=== PATIENT | female | born 1955 | race Caucasian/White ===

== ENCOUNTER 2020-05-24 13:58 | Outpatient (CLI) | payer MEDICARE, BC, SELFPAY ==
--- NOTE | ~2020-05-24 | MM_ITS ---
EXAMINATION: MM screening [facility] BI w rudolph HISTORY: Screening mammogram TECHNIQUE: Craniocaudal and mediolateral oblique 3-D tomosynthesis images were obtained and synthetic 2-D images were generated. CAD analysis was submitted and interpreted. COMPARISON: 06/06/2015, 06/02/2014, 11/30/2007 BREAST PARENCHYMAL COMPOSITION: There are scattered areas of fibroglandular density. FINDINGS: There is no evidence of suspicious mass, calcification, or architectural distortion to sugg est malignancy in either breast. There has been no suspicious interval change. IMPRESSION: 1. No mammographic evidence of malignancy. 2. Recommend routine screening mammography in one year. BI-RADS Category 1: Negative Reviewed, dictated and finalized at location A.
== END 2020-05-24 13:59 | disposition home or self-care (01) ==
LOC: ANHIMG 14:01
PROVIDERS: PCP Family Medicine Adolescent Medicine; Visit Provider Physician Assistant
DX: Z12.31 Encounter for screening mammogram for malignant neoplasm of breast (principal)
CPT/HCPCS: 77063; 77067

== ENCOUNTER 2021-06-19 08:32 | Outpatient (CLI) | payer MEDICARE, BC, SELFPAY ==
--- NOTE | ~2021-06-19 | MM_ITS ---
EXAMINATION: MM screening [facility] BI w rudolph HISTORY: Screening TECHNIQUE: Craniocaudal and mediolateral oblique 3-D tomosynthesis images were obtained and synthetic 2-D images were generated. CAD analysis was submitted and interpreted. COMPARISON: Comparison to multiple prior studies sequentially, with oldest reviewed study dated 06/02. BREAST PARENCHYMAL COMPOSITION: There are scattered areas of fibroglandular density. FINDINGS: There is no evidence of suspicious mass, calcification, or architectural distortion to sugg est malignancy in either breast. There has been no suspicious interval change. IMPRESSION: 1. No mammographic evidence of malignancy. 2. Recommend routine screening mammography in one year. BI-RADS Category 1: Negative Reviewed, dictated and finalized at location A.
== END 2021-06-19 08:33 | disposition home or self-care (01) ==
PROVIDERS: PCP Family Medicine Adolescent Medicine; Visit Provider Physician Assistant
DX: Z12.31 Encounter for screening mammogram for malignant neoplasm of breast (principal)
CPT/HCPCS: 77063; 77067

== ENCOUNTER 2022-03-08 17:18 | Emergency (ER) | payer MEDICARE, BC, SELFPAY ==
--- NOTE | ~2022-03-08 | XR_ITS ---
EXAMINATION: XR knee LT min 4V DATE: 03/08/2022 18:00 INDICATION: Anterior left knee pain post fall TECHNIQUE: Anteroposterior, 2 oblique, sunrise and crosstable lateral views of the affected knee were obtained COMPARISON: None. FINDINGS: Alignment is normal. No fracture. No joint effusion/layering lipohemarthrosis. Osteoarthritis with s mall marginal osteophytes in all 3 compartments and at least moderate joint space narrowing in the me dial compartment and mild in the lateral and patellofemoral compartments which could be under estimat ed on nonweightbearing imaging. Mild prepatellar soft tissue swelling with mild subcutaneous edema. IMPRESSION: 1. No left knee joint effusion or acute osseous abnormality. 2. 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 Reviewed, dictated and finalized at location A. IMPRESSION: 1. No left knee joint effusion or acute osseous abnormality. 2. Tricompartmental osteoarthritis of at least moderate severity medial compart ment.
[2022-03-08 17:49] VITALS: BP 164/82; PULSE 99; RESP 18; TEMP 36.7; O2SAT 99
--- NOTE | 2022-03-08 18:13 | ED.LOWEXIN ---
HPI - Extremity Injury (Lower) General Chief Complaint: Extremity Injury, Lower Stated Complaint: lt knee injury Time Seen by Provider: 03/08/22 17:37 Source: patient Mode of arrival: ambulatory Limitations: no limitations History of Present Illness HPI Narrative: 66-year-old female presents to [facility] with complaints of pain, bruising and swelling to her left knee since 1445 today. Patient reports that she was taking care of her son's dog when she tripped over a dog toy hitting her left knee on the floor. Patient has been applying cool compress and took ibuprofen with minimal relief. Patient reports that she is in need of bilateral knee replacement and does see orthopedics. Patient denies open wounds, numbness or tingling. MD complaint: knee injury Onset (ago): hour(s) (2) Injury: Left: knee Type of Injury: blunt Place: home Context: fall Associated symptoms: swelling Treatments prior to arrival: cold therapy and NSAIDS Related Data Home Medications Medication Instructions Recorded Confirmed lisinopril 40 mg tablet 40 mg PO DAILY tablet 02/06/21 03/08/22 omeprazole 20 mg capsule,delayed 20 mg PO DAILY 02/06/21 03/08/22 release clonazepam 1 mg PO DIRECTED 03/08/22 03/08/22 Allergies Allergy/AdvReac Type Severity Reaction Status Date / Time morphine Allergy Mild VOMITING Verified 03/08/22 18:09 Steri-strips Allergy Rash Uncoded 03/08/22 18:09 Review of Systems Constitutional: Constitutional: Denies chills, Denies fever(s) and Denies weakness Respiratory: Respiratory: Denies cough Gastrointestinal: Gastrointestinal: Denies abdominal pain, Denies nausea and Denies vomiting Musculoskeletal: Comments: Left knee pain, swelling and bruising Endocrine: Endocrine: Denies fatigue [facility] Past Medical History Medical History History of torn meniscus of knee 2012 Restless leg syndrome Surgical History Surgical History History of appendectomy History of cholecystectomy History of hernia surgery Social History Social History Smoking status: Never smoker Alcohol intake: never Substance use: never Substance use type: does not use Comments At time of signature, I agree with nursing past medical, surgical, social and family history. There is no relevant family history pertinent to the presenting complaint. Exam Const: General: no acute distress Nutritional Appearance: well nourished Orientation/consciousness: patient oriented x3 Neck: Neck: normal visual inspection Resp: Effort & Inspection: normal respiratory effort, not labored and not tachypneic Auscultation: clear to auscultation bilaterally Cardio: Rate: regular rate, not bradycardic and not tachycardic Rhythm: regular rhythm Skin: General skin exam: normal color Rashes: no rashes Wounds: no wounds Neuro: General: patient oriented x3 and moves all extremities Speech: normal speech Extrem: Other: Mild swelling noted to left lower knee with mild bruising noted. Full range of motion is noted to left knee. There are no open wounds noted. Psych: Appearance: grossly normal Affect: normal affect Attitude: cooperative Thought content: Yes Normal thought content present Course Course Level of Care: Express Care Visit Vital Signs Vital signs: Vital Signs Temperature 36.7 C 03/08/22 17:49 Pulse Rate 99 03/08/22 17:49 Respiratory Rate 18 03/08/22 17:49 Blood Pressure 164/82 H 03/08/22 17:49 Pulse Oximetry 99 03/08/22 17:49 Temperature 36.7 C 03/08/22 17:49 Pulse Rate 99 03/08/22 17:49 Respiratory Rate 18 03/08/22 17:49 Blood Pressure 164/82 H 03/08/22 17:49 Pulse Oximetry 99 03/08/22 17:49 MDM - Extremity Injury (Lower) MDM Narrative Medical decision making narrative: Discussed x-ray results with lópez
== END 2022-03-08 18:21 | disposition home or self-care (01) ==
PROVIDERS: Emergency Provider Nurse Practitioner Family; PCP Family Medicine Adolescent Medicine
DX: M25.562 Pain in left knee (principal); G25.81 Restless legs syndrome
CPT/HCPCS: 73564; 99213; G0463

== ENCOUNTER 2022-04-17 06:46 | Outpatient (CLI) | payer MEDICARE, BC, SELFPAY ==
[2022-04-17 07:57] LABS: Hemoglobin A1C 6.8 % (<5.7)
[2022-04-17 07:59] LABS: Alanine Aminotransferase 43 U/L (6-35); Albumin Level 4.2 g/dL (3.5-5.1); Alkaline Phosphatase 91 U/L (38-126); Anion Gap 7 mmol/L (8-16); Aspartate Amino Transferase 33 U/L (14-36); Bilirubin,Total 0.6 mg/dL (0.2-1.3); Blood Urea Nitrogen 15 mg/dL (7-17); Calcium 8.6 mg/dL (8.4-10.2); Carbon Dioxide 26 mmol/L (22-30); Chloride 104 mmol/L (98-107); Cholesterol 186 mg/dL (0-200); Estimated Glomerular Filt Rate > 60; Glucose 148 mg/dL (65-110); HDL Direct 57 mg/dL; Magnesium 1.7 mg/dL (1.6-2.3); Sodium 137 mmol/L (137-145); Triglycerides 118 mg/dL (<150)
[2022-04-17 08:08] LABS: LDL Cholesterol Direct 98 mg/dL
== END 2022-04-17 06:47 | disposition home or self-care (01) ==
LOC: ANHLAB 06:48
PROVIDERS: PCP Family Medicine Adolescent Medicine; Visit Provider Physician Assistant
DX: E11.9 Type 2 diabetes mellitus without complications (principal); E78.00 Pure hypercholesterolemia, unspecified; I10 Essential (primary) hypertension; R25.2 Cramp and spasm
CPT/HCPCS: 36415; 80053; 80061; 83036; 83735

== ENCOUNTER 2022-07-03 10:01 | Emergency (ER) | payer MEDICARE, BC, SELFPAY ==
--- NOTE | ~2022-07-03 | XR_ITS ---
EXAMINATION: XR chest 2V DATE: 07/03/2022 10:58 INDICATION: Chest pain TECHNIQUE: AP and lateral views of the chest are obtained. COMPARISON: 02/28/2012 FINDINGS: The lungs are free of acute opacities. No pleural effusion or pneumothorax. The cardiomedia stinal silhouette is normal. There are bridging osteophytes at multiple levels in the spine, consiste nt with diffuse idiopathic skeletal hyperostosis (DISH). Surgical clips in the right upper quadrant a re likely from prior cholecystectomy. IMPRESSION: 1. No acute cardiopulmonary abnormality. Reviewed, dictated and finalized at location B.
--- NOTE | 2022-07-03 10:08 | ECG_ITS ---
Measurements Intervals [place] Rate: 82 P: 58 TX: 183 QRS: -27 QRSD: 107 T: 25 QT: 402 QTc: 471 Interpretive Statements SINUS RHYTHM BORDERLINE LEFT AXIS DEVIATION MODERATE VOLTAGE CRITERIA FOR LVH, CONSIDER NORMAL VARIANT BORDERLINE ECG NO PREVIOUS ECG AVAILABLE FOR COMPARISON Electronically Signed On 07-03-2022 16:08:38 CDT by Arsalan Ybarra M.D.
[2022-07-03 10:36] VITALS: BP 152/74; PULSE 78; RESP 16; TEMP 36.5; O2SAT 97
--- NOTE | 2022-07-03 10:37 | ED.CHESTPAIN ---
HPI - Chest Pain General Chief Complaint: Chest Pain Stated Complaint: CP Time Seen by Provider: 07/03/22 10:32 History of Present Illness HPI narrative: 66-year-old female with a history of high blood pressure and diabetes presents to the emergency room for evaluation of substernal chest pain. Patient states approximately 30 this morning she woke up experiencing chest pain that lasted about 10 minutes. Describes the pain as pressure, is alleviated when taking a deep breath. States the pain lasted for about 10 minutes. Pain occurred while at rest. Approximately 30 minutes later, patient experienced same pain, again lasting about 10 minutes. Patient also endorses nausea. Denies any syncope, weakness. Denies fevers Related Data Home Medications Medication Instructions Recorded Confirmed lisinopril 40 mg tablet 40 mg PO DAILY 02/06/21 04/15/22 omeprazole 20 mg capsule,delayed 20 mg PO DAILY 02/06/21 04/15/22 release Allergies Allergy/AdvReac Type Severity Reaction Status Date / Time morphine Allergy Mild VOMITING Verified 04/15/22 09:28 Steri-strips Allergy Rash Uncoded 04/15/22 09:28 amlodipine AdvReac Mild Diarrhea Uncoded 05/21/22 14:17 Review of Systems Review of Systems: CONSTITUTIONAL: Denies fever, chills, or sweats. EYES: Denies visual changes, redness, or discharge. ENT: Denies rhinorrhea, congestion, sore throat, or otalgia. CARDIOVASCULAR: Reports chest pain, denies palpitations, or denies edema. RESPIRATORY: Denies cough or dyspnea. GASTROINTESTINAL: Denies abdominal pain, nausea, vomiting, or diarrhea. GENITOURINARY: Denies dysuria or hematuria. SKIN: Denies rash or itching. MUSCULOSKELETAL: Denies back pain, joint pain, or myalgia. NEUROLOGIC: Denies headache, numbness, dizziness, or weakness. PSYCHIATRIC: Denies anxiety or depression. [facility] Past Medical History Medical History History of torn meniscus of knee 2012 Restless leg syndrome Surgical History Surgical History History of appendectomy History of cholecystectomy History of hernia surgery Family History Family History Mother Heart disease Diabetes mellitus Sibling Heart disease Diabetes mellitus Depression Lymphoma Multiple sclerosis Lupus Social History Social History Smoking status: Never smoker Second hand tobacco smoke exposure: No Alcohol intake: never Substance use: never Substance use type: does not use Gender identity (if verbalized by the patient): Female Sexual Orientation (if Verbalized by the Patient): Straight or Heterosexual Spiritual care concerns: No Agree to blood products: Yes Exam Narrative: GENERAL: Well-appearing, well-nourished, no physical limitations, and in no acute distress. HEAD: Normocephalic, atraumatic. EYES: Conjunctivae normal, PERRLA and EOMI. NECK: Supple. No carotid bruits or JVD CHEST: Clear to auscultation. No respiratory distress. No wheezes rales or rhonchi. No tenderness. HEART: Regular rate and rhythm. No murmur heard. Normal peripheral pulses. ABDOMEN: Soft, nontender, nondistended, normal active bowel sounds. EXTREMITIES: Normal range of motion. No edema. No clubbing or cyanosis SKIN: Warm, dry, no rash. No noted wounds NEURO: No focal deficits. Alert and oriented x3. MAEW. CN's II-XI intact bilaterally, normal gait PSYCH: Cooperative. Normal mood and affect. Course Vital Signs Vital signs: Vital Signs Temperature 36.5 C 07/03/22 10:36 Pulse Rate 78 07/03/22 10:36 Respiratory Rate 16 07/03/22 10:36 Blood Pressure 152/74 H 07/03/22 10:36 Pulse Oximetry 97 07/03/22 10:36 Oxygen Delivery Room Air 07/03/22 10:36 Temperature 36.5 C 07/03/22 10:36 Pulse Rate 67 07/03/22 12:40
[2022-07-03 10:50] LABS: Basophils Absolute Auto 0.1 K/mm3 (0.0-0.1); Basophils Percent Auto 0.6 % (0.2-1.2); Eosinophils Absolute Auto 0.1 K/mm3 (0-0.3); Hemoglobin 13.5 g/dL (12.0-15.0); Immature Granulocyte Absolute 0.01 K/mm3 (0.00-0.031); Immature Granulocyte Percent A 0.1 % (0-0.5); Lymphocytes Absolute Auto 2.08 K/mm3 (0.9-3.2); Lymphocytes Percent Auto 26.5 % (18.3-44.2); Mean Corpuscular HGB Conc 31.4 g/dl (32-36); Mean Corpuscular Hemoglobin 27.3 pg (26-34); Mean Corpuscular Volume 86.9 fl (80-100); Mean Platelet Volume 10.2 fl (7.4-10.4); Monocytes Absolute Auto 0.5 K/mm3 (0.1-0.6); Monocytes Percent Auto 6.5 % (2.6-8.5); Neutrophils Absolute Auto 5.1 K/mm3 (1.3-6.7); Neutrophils Percent Auto 65.3 % (45.5-73.1); Platelet Count Result 190 k/mm3 (150-375); Red Blood Count 4.95 M/mm3 (4.2-5.4); Red Cell Distribution Width 14.4 % (11.5-14.5); White Blood Count 7.9 K/mm3 (4.5-10.0)
[2022-07-03 11:00] LABS: Alanine Aminotransferase 40 U/L (6-35); Albumin Level 4.4 g/dL (3.5-5.1); Alkaline Phosphatase 89 U/L (38-126); Anion Gap 12 mmol/L (8-16); Aspartate Amino Transferase 44 U/L (14-36); Bilirubin,Total 0.6 mg/dL (0.2-1.3); Blood Urea Nitrogen 11 mg/dL (7-17); Calcium 8.8 mg/dL (8.4-10.2); Carbon Dioxide 26 mmol/L (22-30); Chloride 101 mmol/L (98-107); Estimated CRCL calculation 93 ml/min; Estimated Glomerular Filt Rate > 60; Glucose 166 mg/dL (65-110); Lipase 57 U/L (23-300); Sodium 139 mmol/L (137-145)
[2022-07-03 11:04] LABS: INR 1.1
[2022-07-03 11:05] LABS: Partial Thromboplastin Time 32.9 SECONDS (22.3-36.8)
[2022-07-03 11:12] LABS: Troponin I < 0.012 ng/mL (0.000-0.034)
[2022-07-03 11:44] VITALS: BP 174/84; PULSE 78; RESP 18; O2SAT 98
[2022-07-03 12:40] VITALS: BP 174/77; PULSE 67; RESP 18; O2SAT 97
[2022-07-03 13:30] LABS: Troponin I < 0.012 ng/mL (0.000-0.034)
[2022-07-03 14:08] VITALS: BP 160/85; PULSE 71; RESP 18; O2SAT 98
== END 2022-07-03 14:08 | disposition home or self-care (01) ==
PROVIDERS: Preventive Medicine Aerospace Medicine; Emergency Provider Nurse Practitioner Family; PCP Family Medicine Adolescent Medicine
DX: R07.89 Other chest pain (principal); I10 Essential (primary) hypertension; E11.9 Type 2 diabetes mellitus without complications; G25.81 Restless legs syndrome; R94.31 Abnormal electrocardiogram [ECG] [EKG]; Z79.84 Long term (current) use of oral hypoglycemic drugs
CPT/HCPCS: 36415; 71046; 80053; 83690; 84484; 85025; 85380; 85610; 85730; 93005; 99284

== ENCOUNTER 2022-07-10 09:20 | Outpatient (CLI) | payer MEDICARE, BC, SELFPAY ==
--- NOTE | ~2022-07-10 | CT_ITS ---
EXAMINATION: CT abdomen pelvis w con DATE: 07/10/2022 09:50 INDICATION: Epigastric abdominal pain TECHNIQUE: Computed tomography (CT) of the abdomen and pelvis was performed with 100 CC Omnipaque 350 intravenous contrast. Automated exposure control and iterative reconstruction technique were employe d. Exam dose: 1478.88 mGy-cm total exam DLP. COMPARISON: 09/23/2010 CT abdomen pelvis FINDINGS: Minimal atelectasis at the lung bases. Heart size is normal. No pericardial or pleural effu patricia. Small sliding hiatal hernia. Status post cholecystectomy. No bile duct or pancreatic duct dilatation. No hepatic, splenic or pancr eatic space-occupying mass lesion. Normal morphology of the adrenal glands. No renal mass lesion or u rinary tract calculus or hydroureteronephrosis. The uterus, adnexal areas and urinary bladder are unremarkable. The appendix appears to be absent.. Diverticulosis of the colon; no CT evidence of diverticulitis. No bowel obstruction, bowel wall thickening, pneumatosis or intraperitoneal free air. Normal caliber of the abdominal aorta. No intraperitoneal or retroperitoneal or pelvic mass lesion or adenopathy or ascites. Status post ventral abdominal wall hernia repair. Diffuse idiopathic skeletal hyperostosis of the thoracic spine. No suspicious osteolytic or osteoblas tic lesions are noted. IMPRESSION: Small sliding hiatal hernia Status post cholecystectomy diverticulosis of the colon; no evidence of diverticulitis Status post ventral abdominal wall hernia repair Diffuse idiopathic skeletal hyperostosis of the thoracic spine Reviewed, dictated and finalized at Location A. Reviewed, dictated and finalized at location B. IMPRESSION: Small sliding hiatal hernia Status post cholecystectomy diverticulosis of the colon; no evidence of diverti culitis Status post ventral abdominal wall hernia repair Diffuse idiopathic skeletal hyperostosis of the thoracic spine
== END 2022-07-10 09:21 | disposition home or self-care (01) ==
PROVIDERS: PCP Family Medicine Adolescent Medicine; Visit Provider Physician Assistant
DX: R10.13 Epigastric pain (principal); K44.9 Diaphragmatic hernia without obstruction or gangrene; Z90.49 Acquired absence of other specified parts of digestive tract; M48.14 Ankylosing hyperostosis [Forestier], thoracic region
CPT/HCPCS: 74177; Q9967

== ENCOUNTER 2022-07-24 08:57 | Outpatient (CLI) | payer MEDICARE, BC, SELFPAY ==
--- NOTE | ~2022-07-24 | MM_ITS ---
EXAMINATION: MM screening jose BI w rudolph HISTORY: Screening mammogram TECHNIQUE: Craniocaudal and mediolateral oblique 3-D tomosynthesis images were obtained and synthetic 2-D images were generated. CAD analysis was submitted and interpreted. COMPARISON: , 05/24/2020 bilateral screening mammogram examinations BREAST PARENCHYMAL COMPOSITION: There are scattered areas of fibroglandular density. FINDINGS: There is no evidence of suspicious mass, calcification, or architectural distortion to sugg est malignancy in either breast. There has been no suspicious interval change. IMPRESSION: 1. No mammographic evidence of malignancy. 2. Recommend routine screening mammography in one year. BI-RADS Category 1: Negative Reviewed, dictated and finalized at location A.
== END 2022-07-24 08:58 | disposition home or self-care (01) ==
PROVIDERS: PCP Family Medicine Adolescent Medicine; Visit Provider Physician Assistant
DX: Z12.31 Encounter for screening mammogram for malignant neoplasm of breast (principal)
CPT/HCPCS: 77063; 77067

== ENCOUNTER 2022-08-15 13:00 | Outpatient (NON) | payer MEDICARE, BC, SELFPAY | END 2022-08-15 13:01 | disposition home or self-care (01) | LOC: ANHLAB 08-16 08:23 | PROVIDERS: PCP Family Medicine Adolescent Medicine; Visit Provider Nurse Practitioner | DX: C44.329 Squamous cell carcinoma of skin of other parts of face (principal); L81.4 Other melanin hyperpigmentation | CPT/HCPCS: 88305 ==

== ENCOUNTER 2022-09-30 14:32 | Outpatient (NON) | payer MEDICARE, BC, SELFPAY | END 2022-09-30 14:33 | disposition home or self-care (01) | LOC: ANHLAB 14:32 | PROVIDERS: PCP Family Medicine Adolescent Medicine; Referring Provider Nurse Practitioner; Visit Provider Nurse Practitioner | DX: C44.329 Squamous cell carcinoma of skin of other parts of face (principal) | CPT/HCPCS: 88305; 88331 ==

== ENCOUNTER 2023-06-17 06:43 | Outpatient (CLI) | payer MEDICARE, BC, SELFPAY ==
[2023-06-17 07:15] LABS: Alanine Aminotransferase 39 U/L (6-35); Albumin Level 4.2 g/dL (3.5-5.1); Alkaline Phosphatase 66 U/L (38-126); Anion Gap 10 mmol/L (8-16); Aspartate Amino Transferase 43 U/L (14-36); Bilirubin,Total 0.6 mg/dL (0.2-1.3); Blood Urea Nitrogen 24 mg/dL (7-17); Calcium 8.9 mg/dL (8.4-10.2); Carbon Dioxide 25 mmol/L (22-30); Chloride 103 mmol/L (98-107); Cholesterol 176 mg/dL (0-200); Estimated Glomerular Filt Rate 55; Glucose 137 mg/dL (65-110); HDL Direct 34 mg/dL; Potassium 4.7 mmol/L (3.4-5.0); Sodium 138 mmol/L (137-145); Triglycerides 205 mg/dL (<150)
[2023-06-17 07:25] LABS: LDL Cholesterol Direct 94 mg/dL
[2023-06-17 08:24] LABS: Hepatitis C Virus Antibody Negative (Negative)
== END 2023-06-17 06:44 | disposition home or self-care (01) ==
LOC: ANHLAB 06:45
PROVIDERS: PCP Family Medicine Adolescent Medicine; Visit Provider Family Medicine Adolescent Medicine
DX: E78.00 Pure hypercholesterolemia, unspecified (principal); E11.9 Type 2 diabetes mellitus without complications; I10 Essential (primary) hypertension; Z11.59 Encounter for screening for other viral diseases
CPT/HCPCS: 36415; 80053; 80061; 86803

== ENCOUNTER 2023-09-18 11:49 | Outpatient (CLI) | payer MEDICARE, BC, SELFPAY ==
[2023-09-18 13:17] LABS: Basophils Percent Auto 0.3 % (0.2-1.2); Eosinophils Absolute Auto 0.1 K/mm3 (0-0.3); Hematocrit 40.9 % (37.0-47.0); Hemoglobin 12.8 g/dL (12.0-15.0); Immature Granulocyte Absolute 0.01 K/mm3 (0.00-0.031); Immature Granulocyte Percent A 0.1 % (0-0.5); Lymphocytes Absolute Auto 2.77 K/mm3 (0.9-3.2); Lymphocytes Percent Auto 31.5 % (18.3-44.2); Mean Corpuscular HGB Conc 31.3 g/dl (32-36); Mean Corpuscular Hemoglobin 28.2 pg (26-34); Mean Corpuscular Volume 90.1 fl (80-100); Mean Platelet Volume 10.4 fl (7.4-10.4); Monocytes Absolute Auto 0.6 K/mm3 (0.1-0.6); Monocytes Percent Auto 6.3 % (2.6-8.5); Neutrophils Absolute Auto 5.3 K/mm3 (1.3-6.7); Neutrophils Percent Auto 60.8 % (45.5-73.1); Platelet Count Result 170 k/mm3 (150-375); Red Blood Count 4.54 M/mm3 (4.2-5.4); Red Cell Distribution Width 13.3 % (11.5-14.5); White Blood Count 8.8 K/mm3 (4.5-10.0)
[2023-09-18 13:27] LABS: Albumin Level 4.5 g/dL (3.5-5.1); Anion Gap 11 mmol/L (8-16); Blood Urea Nitrogen 21 mg/dL (7-17); Calcium 9.2 mg/dL (8.4-10.2); Carbon Dioxide 26 mmol/L (22-30); Chloride 102 mmol/L (98-107); Estimated Glomerular Filt Rate 55; Glucose 108 mg/dL (65-110); Potassium 3.9 mmol/L (3.4-5.0); Sodium 139 mmol/L (137-145)
[2023-09-18 13:30] LABS: Urine Cotinine NEGATIVE
[2023-09-18 14:01] LABS: Hemoglobin A1C 5.6 % (<5.7)
== END 2023-09-18 11:50 | disposition home or self-care (01) ==
LOC: ANHSURGERY 11:54
PROVIDERS: PCP Family Medicine Adolescent Medicine; Visit Provider Orthopaedic Surgery
DX: M17.12 Unilateral primary osteoarthritis, left knee (principal); Z01.818 Encounter for other preprocedural examination
CPT/HCPCS: 80048; 80307; 82040; 83036; 85025; 87081

== ENCOUNTER 2023-10-08 01:26 | Day surgery (SDC) | payer MEDICARE, BC, SELFPAY ==
[2023-09-18 11:59] VITALS: BMI 39.6
--- NOTE | 2023-09-18 12:25 | PC.NURSE ---
Report to the Outpatient Waiting Room, entrance under the green pavilion located off [facility], at time __1000 on date __10/08/23 . Planned Procedure Time: __1200 . Time changes happen often and if your time is changed the preop area will call you the afternoon before. - You and your visitor will be asked to self-screen and do not enter if you have any COVID symptoms. - A mask is optional within the hospital at this time. Patients may have clear liquids (water, carbonated beverages, clear teas, apple juice) until 3 hours prior to surgery with a maximum of 20 ounces. - No food from midnight until time of surgery - Infants may have breast milk until 4 hours before surgery, formula 6 hours prior to surgery. - Children will be allowed to drink immediately following surgery. If applicable, please bring a bottle or sippy cup to assist with drinking. Juice, water, soda, and popsicles are readily available. For infants on formula, please bring formula the day of surgery. Pacifiers are allowed. Take the following medications with a SIP of water the morning of surgery: ____METOPROLOL DO NOT STOP ANY OF YOUR OTHER PRESCRIPTION MEDICATIONS PRIOR TO SURGERY ?EXCEPT THE FOLLOWING Medications to discontinue per physician NONE Please no make-up, nail bhutanese, hairspray, perfume, deodorant, or body powder the day of surgery. No jewelry (including any body piercings) or valuables the day of surgery, leave them at home. Please take a shower or bath the night before, or the morning of, surgery with an antibacterial soap. Wear comfortable, loose fitting clothing. Children are encouraged to wear pajamas. - Jewelry must be removed prior to entering the operating room. Rings and piercings that are not removed may be cut off. - The hospital will not accept responsibility for valuables. - Please leave all valuables, including medications, at home the day of surgery. If you are going home after surgery, a licensed driver education road instructor must drive you home. - NO public transportation without another adult if you receive anesthesia. - We recommend that an adult stay with you for 24 hours following discharge. - We also recommend that you do not drive, make important decision, drink alcoholic beverages, or take any drugs that were not prescribed by your health care provider for at least 24 hours after your discharge time. For Pediatric surgeries, we recommend two adults accompany the child home. Follow any additional instructions given to you from your surgeon. If you or anyone in your household have experienced Covid symptoms in the past week, please notify your surgeon or the nurse liaison at the phone number below for possible testing. VERBAL AND WRITTEN instructions given to ___PATIENT and asked if any additional questions and then verbalized understanding. Patient advised to call surgeon office or pre surgery nurse liaison [phone] if any additional questions.
[2023-09-18 12:39] VITALS: BP 142/67; PULSE 53; RESP 18; TEMP 36.7; O2SAT 100
--- NOTE | 2023-10-07 15:55 | WPDANESEPPF ---
Anes - Initial Pre Proc Eval Procedure: Operation Date: 10/08/23 12:00 Proposed Procedures p Left Total Knee Arthroplasty, Right Knee Cortisone Injection - Yash Skinner MD Date/Time: 10/07/23 15:55 Surgeon: Yash Skinner MD Pre Op Diagnosis: oa bilateral knee Patient Data Age: 68 Gender: F Height: 1.59 m Weight: 100 kg Last Vital Signs Temp 36.7 C 09/18/23 12:39 Pulse 53 L 09/18/23 12:39 Resp 18 09/18/23 12:39 BP 142/67 H 09/18/23 12:39 Pulse Ox 100 09/18/23 12:39 O2 Del Method Room Air 09/18/23 12:39 Allergies Allergy/AdvReac Type Severity Reaction Status Date / Time amlodipine AdvReac Mild Diarrhea Verified 10/07/23 08:11 morphine AdvReac Mild VOMITING Verified 10/07/23 08:11 Steri-strips Allergy Rash Uncoded 09/18/23 12:02 Home Medications Medication Instructions Recorded Confirmed Type hydrochlorothiazide 25 mg tablet 25 mg PO DAILY #90 tabs 05/12/23 10/08/23 Rx omeprazole 20 mg capsule,delayed 20 mg PO BID #180 caps 05/12/23 10/08/23 Rx release ezetimibe 10 mg tablet 10 mg PO DAILY #90 tabs 05/16/23 10/08/23 Rx lancets 30 gauge (Easy Touch Twist #100 ea 05/28/23 06/16/23 Rx Lancets) blood sugar diagnostic (Contour #100 ea 06/09/23 06/16/23 Rx Next Test Strips) clonazepam 0.5 mg tablet See Rx Instructions PO QHS PRN 06/22/23 10/08/23 Rx restless leg #30 tabs lisinopril 40 mg tablet 40 mg PO DAILY #90 tabs 07/09/23 10/08/23 Rx metoprolol succinate 100 mg 100 mg PO DAILY #90 tabs 07/09/23 10/08/23 Rx tablet,extended release 24 hr glimepiride 2 mg tablet 2 mg PO DAILY 09/18/23 10/08/23 History metformin 500 mg tablet,extended 500 mg PO BID 09/18/23 10/08/23 History release 24 hr Patient hx anesthesia problems: none Family hx anesthesia problems: none Results Review: All pre-operative results and documents have been reviewed as part of the pre-operative evaluation. [facility] Past Medical History Medical History (Updated 10/07/23 @ 15:56 by Kai Hart DO) Diabetes type 2, controlled Essential (primary) hypertension History of torn meniscus of knee 2011 Pure hypercholesterolemia, unspecified Restless leg syndrome Surgical History Surgical History History of appendectomy History of cholecystectomy History of hernia surgery Family History Family History Mother Heart disease Diabetes mellitus Sibling Heart disease Diabetes mellitus Depression Lymphoma Multiple sclerosis Lupus Social History Social History (Updated 07/04/22 @ 09:13 by Nery Wilkinson MA) Smoking status: Never smoker Second hand tobacco smoke exposure: No Additional smoking assessment comments: DENIES ANY FORM OF TOBACCO USE Alcohol intake: never Substance use: never Substance use type: does not use Living arrangements: with family Occupation/Education: retired Gender identity (if verbalized by the patient): Female Sexual Orientation (if Verbalized by the Patient): Straight or Heterosexual Spiritual care concerns: No Agree to blood products: Yes Anes - Eval Final PreProcedure Day of Procedure 10/07/23 15:55 Patient weight: obese Heart: regular rate and rhythm Lungs: clear to auscultation Airway: Mallampati scale class II Neurological: alert and oriented Last oral intake: >/= 8 hours ASA classification: III Emergent: no Anesthetic plan: proceed Anesthesia type and monitoring: general LMA and standard monitoring Results Review: All pre-operative results and documents have been reviewed as part of the pre-operative evaluation. Informed Consent: The patient's anesthetic plan and its attendant risks and benefits were discussed with the patient/family/POA. Questions were solicited and answers provided to the satisfaction of the patient/family/POA.
[2023-10-08] VITALS (10 sets, daily range): BP systolic 98–126; BP diastolic 45–67; PULSE 55–83; RESP 12–18; TEMP 36.2–36.6; O2SAT 92–100
--- NOTE | ~2023-10-08 | XR_ITS ---
EXAMINATION: [id number] DATE: 10/08/2023 16:36 B[facility] [employer] IN[employer] INDICATION: Left total knee arthroplasty TECHNIQUE: 2 views left knee FINDINGS: There is a left total knee arthroplasty in expected position. Subcutaneous gas with fluid and air in the joint are consistent with recent surgery. No evidence of periprosthetic fracture. IMPRESSION: 1. Recent left total knee arthroplasty. Reviewed, dictated and finalized at location B. AND [employer]AKFA[employer] INNKEEPER
--- NOTE | 2023-10-08 07:51 | PM.IMHP ---
H&P: HPI History of Present Illness Date/Time: 10/08/23 07:51 Chief Complaint: Bilateral knee DJD Narrative: 68-year-old female who presents today for a left total knee arthroplasty and cortisone injection in the right knee. She is a patient of Dr. Gabriel. Patient has been having symptoms for about 10 years in both knees. She is having trouble with daily activities, she has significant amount pain the longer she is standing or weight-bearing on legs. She has had cortisone injections in the past last ones were over 5 months ago. She had minimal improvement from the injections. At this point patient feels she is ready to proceed with total knee arthroplasty rather continue nonsurgical treatment. Review of Systems Review of Systems: All systems reviewed & are unremarkable except as noted in HPI and below PMFSH Past Medical History Medical History (Updated 10/07/23 @ 15:56 by Kai Hart DO) Diabetes type 2, controlled Essential (primary) hypertension History of torn meniscus of knee 2011 Pure hypercholesterolemia, unspecified Restless leg syndrome Surgical History Surgical History History of appendectomy History of cholecystectomy History of hernia surgery Family History Family History Mother Heart disease Diabetes mellitus Sibling Heart disease Diabetes mellitus Depression Lymphoma Multiple sclerosis Lupus Social History Social History (Updated 07/04/22 @ 09:13 by Nery Wilkinson MA) Smoking status: Never smoker Second hand tobacco smoke exposure: No Additional smoking assessment comments: DENIES ANY FORM OF TOBACCO USE Alcohol intake: never Substance use: never Substance use type: does not use Living arrangements: with family Occupation/Education: retired Gender identity (if verbalized by the patient): Female Sexual Orientation (if Verbalized by the Patient): Straight or Heterosexual Spiritual care concerns: No Agree to blood products: Yes Meds Home Medications and Allergies Home Medications Medication Instructions Recorded Confirmed Type hydrochlorothiazide 25 mg tablet 25 mg PO DAILY #90 tabs 05/12/23 09/18/23 Rx omeprazole 20 mg capsule,delayed 20 mg PO BID #180 caps 05/12/23 09/18/23 Rx release ezetimibe 10 mg tablet 10 mg PO DAILY #90 tabs 05/16/23 09/18/23 Rx lancets 30 gauge (Easy Touch Twist #100 ea 05/28/23 06/16/23 Rx Lancets) blood sugar diagnostic (Contour #100 ea 06/09/23 06/16/23 Rx Next Test Strips) clonazepam 0.5 mg tablet See Rx Instructions PO QHS PRN 06/22/23 09/18/23 Rx restless leg #30 tabs lisinopril 40 mg tablet 40 mg PO DAILY #90 tabs 07/09/23 09/18/23 Rx metoprolol succinate 100 mg 100 mg PO DAILY #90 tabs 07/09/23 09/18/23 Rx tablet,extended release 24 hr glimepiride 2 mg tablet 2 mg PO DAILY 09/18/23 09/18/23 History metformin 500 mg tablet,extended 500 mg PO BID 09/18/23 09/18/23 History release 24 hr Allergies Allergy/AdvReac Type Severity Reaction Status Date / Time amlodipine AdvReac Mild Diarrhea Verified 10/07/23 08:11 morphine AdvReac Mild VOMITING Verified 10/07/23 08:11 Steri-strips Allergy Rash Uncoded 09/18/23 12:02 Exam Narrative: 68-year-old female alert pleasant. She is 5 ft 2 and 221 lb her BMI is 39.8. Range of motion left knee is from 7-140 degrees. There is significant crepitus with range of motion of the knee. Hip range of motion is full without discomfort negative Stinchfield maneuver. Normal quad strength. No effusion in the left knee. Normal stability in the knee. Mild tenderness over the medial joint line to palpation. 2+ dorsalis pedis absent posterior artery pulse. No edema in lower extremity. Normal sensation to light touch. Resp: Auscultation: clear to auscultation bilaterally Cardio: Rate: regular rate Rhyt
[2023-10-08] MEDS: LACTATED RINGERS 1,000 ML 30 ML IV CONT ×2 (10:35→15:59)
[2023-10-08] MEDS: ACETAMINOPHEN 500 MG TABLET 1000 MG PO ×2 (10:39→18:17)
[2023-10-08] MEDS: TRANEXAMIC ACID 1,000MG/ISO100 1,000 MG/100 ML BAG 200 MG IVPB (10:39)
[2023-10-08 10:53] LABS: Glucose Point of Care 115 mg/dl (65-105)
--- NOTE | 2023-10-08 11:23 | WPDHPUPDATE1 ---
History and Physical Update Update Date/Time: 10/08/23 11:23 History and Physical has been reviewed, including an updated exam of the patient. There are NO changes in the patient's condition. Risks, benefits, and alternatives have been discussed and questions answered. Patient agrees to proceed with procedure.
[2023-10-08] MEDS: ceFAZolin 2 GM/D5W 50 ML 2 GM/50 ML BAG IVPB (11:58)
[2023-10-08] MEDS: ceFAZolin SODIUM 1 GM VIAL 3 GM (12:43)
[2023-10-08] MEDS: GENTAMICIN BONE CEMENT REFOBACIN 1 EACH TOPICAL (12:48)
[2023-10-08] MEDS: methylPREDNISolone ACETATE 80 MG/ML VIAL I-ARTICULR (12:50)
[2023-10-08] MEDS: ceFAZolin SODIUM 1 GM VIAL 2 GM IV PUSH (14:48)
[2023-10-08] MEDS: TRANEXAMIC ACID 1,000 MG/10 ML AMPUL 1000 MG IV PUSH (14:56)
--- NOTE | 2023-10-08 15:56 | W.PM.PROC2 ---
Procedure Note - Detailed Date of Procedure 10/08/23 Pre-op Diagnosis oa bilateral knee, obesity Post-op Diagnosis Same Procedure Performed Cortisone injection right knee, left total knee arthroplasty Surgeon Yash Skinner MD [employer] Tory Anesthesia General Description of Procedure Patient was brought to the operating room and general anesthesia was administered. She received 2 g Ancef weight based vancomycin 1 g of tranexamic acid preoperatively. The right knee was prepped with ChloraPrep and 80 mg of Depo-Medrol and 4 cc 1% lidocaine were injected into the right knee joint from a lateral parapatellar approach without difficulty. Because of her obesity with BMI of 39, this added significant difficulty to the procedure and approximately 45 minutes of operative time. The left knee was prepped draped usual fashion. Under anesthesia she had about a 10 degree flexion contracture. Limb was exsanguinated tourniquet elevated to 300 mmHg. A 7 in longitudinal midline incision was used and a standard parapatellar arthrotomy utilized. Infrapatellar and suprapatellar fat pads were partially excised the osteophytes removed from the patella. The patella had normal articular cartilage with mild central chondromalacia. I felt it was most suitable for non resurfacing. A guide ren was inserted down the femoral canal after aspiration of canal contents using the 5 degree valgus cutting bushing 9 mm of bone removed the distal femur. Because of distal femoral wear on the medial side this removed equal amounts medially laterally. Next the tibial plateau was cut. We removed about 2 mm of the low point medial tibial plateau. Cut was made perpendicular to the axis of the tibia. The sclerotic this were excised the PCL recessed. Flexion gap was too tight medially and laterally. An additional 3 mm of bone removed the tibial plateau. The flexion gap at this time measured 10 mm medially and 9 mm laterally. We confirmed the alignment of the tibial cut. We placed the sizing guide set at 2? of external rotation on the distal femur which seemed to be adjusted degree past Whitesides line and external rotation. AP and chamfer cuts were made with the size 62.5 cutting block and trialing showed that the femoral trial was just a little bit too wide. Flexion gap was assessed and we were too tight laterally to insert 10 mm CR insert flexion. The tibia was sized to a size 67 which gave the appropriate fit anteromedial to anterolateral at proper rotation this was punched. Bone quality was very good. We trialed with the 10 and we were too tight laterally so tight that was causing the medial side to book open 2 mm. I elected to applied the size 60 cutting block removing the posterior reference pin from the lateral side so that we could internally rotate the femur 2? and recent secured the cutting block with the threaded pins and the AP and chamfer cuts were revisited and the size 60 femur fit perfectly line to line medial collateral an X the distal condyles. With the 10 mm insert we now had much better stability feel with 1.5 mm of lateral 2 mm of medial opening at 90? a Ramriez elevator. Anterior drawer and excellent stability 90 allowed full flexion. We lacked extension. There was no play medially or laterally in extension. Additional 2 mm of bone removed the distal femur the chamfer cuts revised. On re trialing the knee almost came out straight but still had a positive bounce but now we had 1-2 mm of medial opening and lateral opening and extension. Residual posterior femoral bone was removed using the trial femur as a template and posterior central capsular release was performed from the posterior distal femur. On read trialing the knee came out to full extension with negative bounce with 1-2 medial and 1 to lateral opening. Patellar tracking was excellent throughout range of motion. The tourniquet had been put down at 90 minutes and was was real a vape at this time after
[2023-10-08 16:07] LABS: Glucose Point of Care 138 mg/dl (65-105)
[2023-10-08] MEDS: fentaNYL CITRATE INJ (*CRX) 100 MCG/2 ML VIAL 25 MCG IV PUSH (16:43)
[2023-10-08] MEDS: SENNA/DOCUSATE SODIUM TABLET 2 TAB PO (18:18)
[2023-10-08] MEDS: PANTOPRAZOLE 40 MG TABLET PO (18:18)
[2023-10-08] MEDS: metFORMIN HCL XR 500 MG TAB.SR.24H PO (18:18)
--- NOTE | 2023-10-08 18:20 | PC.NURSE ---
RN held 1700 dose of oxycodone 5mg due to drowsiness. Pt received fentanyl in recovery. 2L nasal cannula noted satting 95%. arousable to touch only.
[2023-10-08 18:27] LABS: Basophils Percent Auto 0.2 % (0.2-1.2); Hematocrit 35.4 % (37.0-47.0); Hemoglobin 11.2 g/dL (12.0-15.0); Immature Granulocyte Absolute 0.03 K/mm3 (0.00-0.031); Immature Granulocyte Percent A 0.3 % (0-0.5); Lymphocytes Absolute Auto 0.62 K/mm3 (0.9-3.2); Lymphocytes Percent Auto 6.8 % (18.3-44.2); Mean Corpuscular HGB Conc 31.6 g/dl (32-36); Mean Corpuscular Hemoglobin 28.6 pg (26-34); Mean Corpuscular Volume 90.5 fl (80-100); Mean Platelet Volume 11.1 fl (7.4-10.4); Monocytes Absolute Auto 0.1 K/mm3 (0.1-0.6); Monocytes Percent Auto 0.8 % (2.6-8.5); Neutrophils Absolute Auto 8.3 K/mm3 (1.3-6.7); Neutrophils Percent Auto 91.9 % (45.5-73.1); Platelet Count Result 152 k/mm3 (150-375); Red Blood Count 3.91 M/mm3 (4.2-5.4); Red Cell Distribution Width 13.3 % (11.5-14.5); White Blood Count 9.1 K/mm3 (4.5-10.0)
[2023-10-08 18:37] LABS: Anion Gap 11 mmol/L (8-16); Blood Urea Nitrogen 25 mg/dL (7-17); Calcium 8.2 mg/dL (8.4-10.2); Carbon Dioxide 21 mmol/L (22-30); Chloride 102 mmol/L (98-107); Estimated CRCL calculation 47 ml/min; Estimated Glomerular Filt Rate 49; Glucose 189 mg/dL (65-110); Potassium 4.6 mmol/L (3.4-5.0); Sodium 134 mmol/L (137-145)
[2023-10-08 19:03] LABS: Platelet Estimate Adequate (Adequate)
[2023-10-08 19:04] LABS: Hypochromasia 1+ (NORMAL); Schistocytes None Seen (NORMAL)
[2023-10-08] MEDS: ceFAZolin 1 GM/NS 50 ML 1 GM/50 ML BAG IVPB (20:25)
[2023-10-08] MEDS: oxyCODONE HCL (*CRX) 5 MG TAB IR PO (20:26)
[2023-10-08] MEDS: VANCOMYCIN 1,000 MG/NS 250 ML 1,000 MG/250 ML BAG 125 MG IVPB (22:07)
[2023-10-09] VITALS (7 sets, daily range): BP systolic 85–120; BP diastolic 34–72; PULSE 60–72; RESP 14–18; TEMP 36.5; O2SAT 93–97
[2023-10-09] MEDS: ACETAMINOPHEN 500 MG TABLET 1000 MG PO ×3 (00:15→12:50)
[2023-10-09] MEDS: oxyCODONE HCL (*CRX) 5 MG TAB IR PO ×3 (00:15→12:50)
[2023-10-09] MEDS: ceFAZolin 1 GM/NS 50 ML 1 GM/50 ML BAG IVPB ×2 (04:55→12:50)
[2023-10-09 05:33] LABS: Basophils Percent Auto 0.2 % (0.2-1.2); Hematocrit 33.8 % (37.0-47.0); Hemoglobin 10.7 g/dL (12.0-15.0); Immature Granulocyte Absolute 0.04 K/mm3 (0.00-0.031); Immature Granulocyte Percent A 0.3 % (0-0.5); Lymphocytes Absolute Auto 0.91 K/mm3 (0.9-3.2); Lymphocytes Percent Auto 7.4 % (18.3-44.2); Mean Corpuscular HGB Conc 31.7 g/dl (32-36); Mean Corpuscular Hemoglobin 28.9 pg (26-34); Mean Corpuscular Volume 91.4 fl (80-100); Mean Platelet Volume 10.4 fl (7.4-10.4); Monocytes Absolute Auto 0.7 K/mm3 (0.1-0.6); Monocytes Percent Auto 5.7 % (2.6-8.5); Neutrophils Absolute Auto 10.7 K/mm3 (1.3-6.7); Neutrophils Percent Auto 86.4 % (45.5-73.1); Platelet Count Result 143 k/mm3 (150-375); Red Cell Distribution Width 13.3 % (11.5-14.5); White Blood Count 12.4 K/mm3 (4.5-10.0)
[2023-10-09 05:43] LABS: Anion Gap 10 mmol/L (8-16); Blood Urea Nitrogen 28 mg/dL (7-17); Carbon Dioxide 22 mmol/L (22-30); Chloride 102 mmol/L (98-107); Estimated CRCL calculation 40 ml/min; Estimated Glomerular Filt Rate 41; Glucose 134 mg/dL (65-110); Potassium 4.6 mmol/L (3.4-5.0); Sodium 134 mmol/L (137-145)
--- NOTE | 2023-10-09 07:23 | PM.IMCN ---
Assessment and Plan Assessment and plan (1) History of left knee replacement: Code(s): Z96.652 - Presence of left artificial knee joint Status: Acute Assessment and Plan: Patient is doing well postoperatively from a pain standpoint and likely to discharge later today from ortho perspective. (2) Hypotension: Code(s): I95.9 - Hypotension, unspecified Status: Acute Assessment and Plan: 10/09: BP in the 85/45 range post ambulation, a bit soft this am on routine vs as well. Patient states no oral intake yesterday and has had pain medications which she is sensitive to. Will give a 500ml saline bolus now, check bp bilateral arms. Hold lisinopril and hctz. - BP improved with map mid 60s. Recommend hold lisinopril and hctz upon discharge with close f/u to the PCP with patient to keep bp log. Patient states has bp cuff, would like to dc, will attend f/u. - Checking orthostatic bp. These were much improved with sbp in the 120s. - Patient instructed to hold lisinopril and hctz, if bp starts increasing beyond goal, add the lisinopril back in. Hold HCTZ until sees PCP. Plan Discharge today. HPI Date of Consult Consult date: 10/09/23 Requesting Physician: Yash Skinner MD Primary Care Provider: Srini Albert MD Consult Narrative Narrative: Nuvia Vargas is a 68 year old female who presented for scheduled Left TKA and right knee glucocorticoid injection. Underwent procedures without event. Denies pain this am and is up and ambulating in the hallway with therapist this morning. She states her plan is to return to home today. She has PT arranged and f/u is in place. Review of Systems Review of Systems: All systems reviewed & are unremarkable except as noted in HPI and below PMFSH Past Medical History Medical History Diabetes type 2, controlled Essential (primary) hypertension History of torn meniscus of knee 2011 Pure hypercholesterolemia, unspecified Restless leg syndrome Surgical History Surgical History History of appendectomy History of cholecystectomy History of hernia surgery History of total left knee replacement (09/2023) Family History Family History Mother Heart disease Diabetes mellitus Sibling Heart disease Diabetes mellitus Depression Lymphoma Multiple sclerosis Lupus Social History Social History Smoking status: Never smoker Second hand tobacco smoke exposure: No Additional smoking assessment comments: DENIES ANY FORM OF TOBACCO USE Alcohol intake: never Substance use: never Substance use type: does not use Lack of Transportation: No Lack of Food: Never True Current Housing: I Have Housing Concerned About Future Housing: No Difficulty Paying Gas/Electric Bills: No Difficulty Paying for Meds: No Currently Unemployed: No Education: Don't Know Difficulty w/ Childcare or Family Care: No Living arrangements: with family Occupation/Education: retired Gender identity (if verbalized by the patient): Female Sexual Orientation (if Verbalized by the Patient): Straight or Heterosexual Spiritual care concerns: No Agree to blood products: Yes Meds Home Medications and Allergies Home Medications Medication Instructions Recorded Confirmed Type omeprazole 20 mg capsule,delayed 20 mg PO BID #180 caps 05/12/23 10/08/23 Rx release ezetimibe 10 mg tablet 10 mg PO DAILY #90 tabs 05/16/23 10/08/23 Rx lancets 30 gauge (Easy Touch Twist #100 ea 05/28/23 10/08/23 Rx Lancets) blood sugar diagnostic (Contour #100 ea 06/09/23 10/09/23 Rx Next Test Strips) clonazepam 0.5 mg tablet See Rx Instructions PO QHS PRN 06/22/23 10/08/23 Rx restless leg #30 t
--- NOTE | 2023-10-09 08:00 | PM.PNORT ---
Progress Note: A&P Assessment and Plan (1) History of left knee replacement: Code(s): Z96.652 - Presence of left artificial knee joint Status: Acute Plan the patient is doing well postop day 1 she is ready for discharge to home later today after therapy all questions were answered. She was given a postop Total knee instruction sheet at the bedside and discussed the details of postop instructions with myself and Dr. Skinner this morning. Patient voiced understanding and agrees with above plan see discharge instructions in discharge summary. Subjective Subjective Date/Time Seen: 10/09/23 08:00 Patient was seen this morning postop day 1 doing very well really has no pain she is alert oriented x3 looking good. Left total knee dressing is clean and dry she is tolerating p.o. well slept well no complaints today. She is ready for discharge to home. Review of Systems Review of Systems: Ten point review of systems negative today. Exam Narrative: Today the patient's vital signs are stable she is afebrile neurovascularly she is intact wound dressing clean and dry calves benign she is alert oriented x3. Normal mood and affect. Able to participate in therapy without significant problems pain is well controlled. Objective Data Vital Signs Vital Signs: Vital Signs - 24 hr 10/08/23 10:57 10/08/23 15:59 10/08/23 16:15 Temperature 36.4 C L 36.6 C Pulse Rate 57 L 83 69 Respiratory Rate 18 16 12 Blood Pressure 126/65 98/45 L 109/62 Pulse Oximetry 100 99 92 Oxygen Delivery Room Air Simple Face Mask Room Air Oxygen Flow Rate 8 10/08/23 16:30 10/08/23 16:45 10/08/23 17:00 Temperature Pulse Rate 70 65 61 Respiratory Rate 14 12 12 Blood Pressure 99/49 L 101/62 102/67 Pulse Oximetry 92 99 99 Oxygen Delivery Room Air Nasal Cannula Nasal Cannula Oxygen Flow Rate 2 2 10/08/23 17:42 10/08/23 18:22 10/08/23 20:50 Temperature 36.2 C L 36.3 C L Pulse Rate 57 L 55 L Respiratory Rate 18 Blood Pressure 106/58 L 108/56 L Pulse Oximetry 95 96 99 Oxygen Delivery Nasal Cannula Oxygen Flow Rate 2 10/08/23 20:00 10/09/23 02:42 Temperature 36.5 C Pulse Rate 55 L 72 Respiratory Rate 18 18 Blood Pressure 101/34 L Pulse Oximetry 99 93 Oxygen Delivery Room Air Oxygen Flow Rate Intake/Output Intake/Output: Intake & Output 10/06/23 10/07/23 10/08/23 10/09/23 23:59 23:59 23:59 23:59 Intake Total 900 Balance 900 Meds/Results Medications: Active Medications Generic Name Dose Route Start Last Admin Trade Name Freq PRN Reason Stop Dose Admin Acetaminophen 1,000 mg 10/08/23 18:00 10/09/23 04:56 Acetaminophen 500 Mg Tablet PO 1,000 mg Q6H SOURAV Administration Apixaban 2.5 mg 10/09/23 09:00 Apixaban 2.5 Mg Tablet PO Q12HR SOURAV Cefdinir 300 mg 10/09/23 21:00 Cefdinir 300 Mg Capsule PO 10/19/23 20:59 Q12HR SOURAV Celecoxib 100 mg 10/09/23 08:00 Celecoxib 100 Mg Capsule PO DAILY@0800 SOURAV Clonazepam 0.5 - 1 mg 10/08/23 17:09 Clonazepam (*Crx) 0.5 Mg Tablet PO QHS PRN restless leg Dextrose 12.5 gm 10/08/23 17:09 Dextrose 50% 25 Gm/50 Ml Syringe IV PUSH PRN PRN Hypoglycemia Protocol Ezetimibe 10 mg 10/09/23 09:00 Ezetimibe 10 Mg Tablet PO DAILY SOURAV Glimepiride 2 mg 10/09/23 09:00 Glimepiride 2 Mg Tablet PO DAILY SOURAV Glucagon 1 mg 10/08/23 17:09 Glucagon For Inj 1 Mg Vial IM PRN PRN Hypoglycemia Protocol Glucose 15 gm 10/08/23 17:09 Glucose Oral Gel 15 Gm Of Glucse In 37.5 Gm Tube PO PRN PRN Hypoglycemia Protocol Cefazolin Sodium 1 gm in 50 mls @ 100 mls/hr 10/08/23 20:00 10/09/23 04:55 Ancef 1 Gm/Ns 50 Ml IVPB 10/09/23 12:29 100 mls/hr Q8H SOURAV Administration Dextrose 1,000 mls @ 100 mls/hr 10/08/23 17:09 Dextrose 5% 1,000 Ml IVPB PRN PRN Hypoglycemia Protocol Vancomycin HCl 1,000 m
[2023-10-09 08:14] LABS: Glucose Point of Care 116 mg/dl (65-105)
--- NOTE | 2023-10-09 08:34 | PM.DS ---
DS: Admitting Diagnosis Discharge Date October 09, 2023 Admitting Diagnosis admitting diagnosis severe primary osteoarthritis left knee joint discharge diagnosis severe primary osteoarthritis left knee joint status post left total knee arthroplasty. DS: Summary Hospital Course Hospital Course: The patient was admitted overnight status post left total knee arthroplasty which was performed by Dr. Skinner on 10/08/2023. Postop day 1 the patient was doing very well pain-free very comfortable she was alert oriented x3. Normal mood and affect. Eating and sleeping well. Vital signs were stable she was afebrile neurovascularly intact wound clean and dry calves are benign. She was up ambulating independently with a walker doing very well. She was to be discharged home general diet activity as tolerated weightbearing as tolerated she was given an instruction sheet on postop total knee instructions. She will resume her home medications, elevate the leg as much as possible above the heart use the walker for support and used the medications as prescribed per Dr. George. The patient has her Eliquis already at home which she picked up preop she will take this for DVT prophylaxis as instructed as well. Patient was to be discharged home in good condition follow-up at 2 weeks postop for wound recheck. She will change dressing in 1 week and may shower with the dressing in place. She will call the office immediately for any problems difficulties or questions and is to have outpatient physical therapy at our office as prescheduled. Time Spent with Patient Time attestation: Total time spent providing and/or coordinating discharge services: Exam Narrative: vital signs stable afebrile neurovascular intact wound clean and dry calves benign alert oriented x3. Normal mood and affect. Ambulating independently with a walker pain well controlled. DS: Data Data Completed and Pending Labs on day of discharge: Labs from last 24 hours 10/09/23 10/09/23 10/08/23 08:05 05:22 17:45 WBC 12.4 H 9.1 RBC 3.70 L 3.91 L Hgb 10.7 L 11.2 L Hct 33.8 L 35.4 L MCV 91.4 90.5 MCH 28.9 28.6 MCHC 31.7 L 31.6 L RDW 13.3 13.3 Plt Count 143 L 152 MPV 10.4 11.1 H Immature Gran % (Auto) 0.3 0.3 Neut % (Auto) 86.4 H 91.9 H Lymph % (Auto) 7.4 L 6.8 L [place] % (Auto) 5.7 0.8 L Eos % (Auto) 0.0 0.0 Baso % (Auto) 0.2 0.2 Lymph # (Auto) 0.91 0.62 L [place] # (Auto) 0.7 H 0.1 Eos # (Auto) 0.0 0.0 Baso # (Auto) 0.0 0.0 Abs Immat Gran (auto) 0.04 H 0.03 Absolute Neuts (auto) 10.7 H 8.3 H Absolute Nucleated RBC 0.0 0.0 Nucleated RBC % 0.0 0.0 Platelet Estimate Adequate Hypochromasia 1+ Schistocytes None seen Sodium 134 L 134 L Potassium 4.6 4.6 Chloride 102 102 Carbon Dioxide 22 21 L Anion Gap 10 11 BUN 28 H 25 H Creatinine 1.30 H 1.10 H Estim Creat Clear Calc 40 47 Estimated GFR 41 L 49 L Glucose 134 H 189 H POC Capillary Glucose 116 H Calcium 8.0 L 8.2 L Blood Type Antibody Screen 10/08/23 10/08/23 10/08/23 16:05 10:44 10:24 WBC RBC Hgb Hct MCV MCH MCHC RDW Plt Count MPV Immature Gran % (Auto) Neut % (Auto) Lymph % (Auto) [place] % (Auto) Eos % (Auto) Baso % (Auto) Lymph # (Auto) [place] # (Auto) Eos # (Auto) Baso # (Auto) Abs Immat Gran (auto) Absolute Neuts (auto) Absolute Nucleated RBC Nucleated RBC % Platelet Estimate Hypochromasia Schistocytes Sodium Potassium Chloride Carbon Dioxide Anion Gap BUN Creatinine Estim Creat Clear Calc Estimated GFR Glucose POC Capillary Glucose 138 H 115 H Calcium Blood Type A Positive Antibody Screen Negative Procedures/Treatments: Left total knee arthroplasty Discharge Plan Discharge Patient Disposition: Home, Self-Care Discharge Instructions
[2023-10-09] MEDS: SENNA/DOCUSATE SODIUM TABLET 2 TAB PO (09:06)
[2023-10-09] MEDS: polyethylene glycoL 3350 17 GM POWD.PACK PO (09:06)
[2023-10-09] MEDS: PANTOPRAZOLE 40 MG TABLET PO (09:06)
[2023-10-09] MEDS: CELECOXIB 100 MG CAPSULE PO (09:06)
[2023-10-09] MEDS: EZETIMIBE 10 MG TABLET PO (09:15)
[2023-10-09] MEDS: metFORMIN HCL XR 500 MG TAB.SR.24H PO (09:17)
[2023-10-09] MEDS: APIXABAN 2.5 MG TABLET PO (09:17)
[2023-10-09] MEDS: GLIMEPIRIDE 2 MG TABLET PO (09:18)
--- NOTE | 2023-10-09 09:36 | PCOTNOTE ---
Attempted to see pt. for occupational therapy evaluation. Pt. and family declined at this time due to pt. reporting dizziness and low BP. Nursing confirmed and aware.
[2023-10-09] MEDS: SODIUM CHLORIDE 0.9% IV 500 ML IV CONT (09:50)
[2023-10-09] MEDS: VANCOMYCIN 1,000 MG/NS 250 ML 1,000 MG/250 ML BAG 125 MG IVPB (10:57)
[2023-10-09 12:28] LABS: Glucose Point of Care 115 mg/dl (65-105)
--- NOTE | 2023-10-09 13:36 | PC.NURSE ---
On 10/09/23, the student, [Elinor Longo], provided care and completed [facility] documentation on this patient. I have reviewed the student's documentation and agree with the findings.
== END 2023-10-09 14:15 | disposition home or self-care (01) ==
LOC: ANHSURGERY 09:50 → ANH2MED 17:18
PROVIDERS: PCP Family Medicine Adolescent Medicine; Visit Provider Orthopaedic Surgery
PROC: (CPT 27447; principal; 2023-10-08 12:00)
DX: M17.0 Bilateral primary osteoarthritis of knee (principal); I95.9 Hypotension, unspecified; E11.9 Type 2 diabetes mellitus without complications; I10 Essential (primary) hypertension; E78.00 Pure hypercholesterolemia, unspecified
CPT/HCPCS: 27447; 20610; 36415; 73560; 80048; 82948; 85025; 86850; 86900; 86901; 97110; 97116; 97161; 97165; 97530; 97535; A9270; C1713; C1776; J0171; J0330; J0690; J1040; J1100; J1170; J1885; J2250; J2270; J2371; J2405; J2704; J2795; J3010; J3370; J7040; J7120

== ENCOUNTER 2024-01-19 09:28 | Outpatient (CLI) | payer MEDICARE, BC, SELFPAY ==
--- NOTE | ~2024-01-19 | MM_ITS ---
EXAMINATION: MM screening jose BI w rudolph HISTORY: Screening mammogram TECHNIQUE: Craniocaudal and mediolateral oblique 3-D tomosynthesis images were obtained and synthetic 2-D images were generated. CAD analysis was submitted and interpreted. COMPARISON: 07/24/2022, 06/19/2021 bilateral screening mammogram examinations BREAST PARENCHYMAL COMPOSITION: There are scattered areas of fibroglandular density. FINDINGS: There is no evidence of suspicious mass, calcification, or architectural distortion to sugg est malignancy in either breast. There has been no suspicious interval change. IMPRESSION: 1. No mammographic evidence of malignancy. 2. Recommend routine screening mammography in one year. BI-RADS Category 1: Negative Reviewed, dictated and finalized at location A.
== END 2024-01-19 09:29 | disposition home or self-care (01) ==
LOC: ANHIMG 09:30
PROVIDERS: PCP Family Medicine Adolescent Medicine; Visit Provider Family Medicine Adolescent Medicine
DX: Z12.31 Encounter for screening mammogram for malignant neoplasm of breast (principal)
CPT/HCPCS: 77063; 77067

== ENCOUNTER 2024-06-14 08:47 | Outpatient (CLI) | payer MEDICARE, BC, SELFPAY ==
[2024-06-14 09:45] LABS: Alanine Aminotransferase 32 U/L (6-35); Albumin Level 4.4 g/dL (3.5-5.1); Alkaline Phosphatase 63 U/L (38-126); Anion Gap 13 mmol/L (4-12); Aspartate Amino Transferase 41 U/L (14-36); Bilirubin,Total 0.8 mg/dL (0.2-1.3); Blood Urea Nitrogen 23 mg/dL (7-17); Calcium 9.1 mg/dL (8.4-10.2); Carbon Dioxide 24 mmol/L (22-30); Chloride 101 mmol/L (98-107); Cholesterol 187 mg/dL (0-200); Estimated Glomerular Filt Rate > 60; Glucose 150 mg/dL (65-110); HDL Direct 43 mg/dL; Potassium 4.6 mmol/L (3.4-5.0); Sodium 138 mmol/L (137-145); Triglycerides 180 mg/dL (<150)
[2024-06-14 09:51] LABS: LDL Cholesterol Direct 105 mg/dL
[2024-06-14 09:58] LABS: Hemoglobin A1C 7.3 % (<5.7)
== END 2024-06-14 08:48 | disposition home or self-care (01) ==
LOC: ANHLAB 08:52
PROVIDERS: PCP Family Medicine Adolescent Medicine; Visit Provider Family Medicine Adolescent Medicine
DX: E78.00 Pure hypercholesterolemia, unspecified (principal); E11.9 Type 2 diabetes mellitus without complications; I10 Essential (primary) hypertension
CPT/HCPCS: 36415; 80053; 80061; 83036

== ENCOUNTER 2025-01-20 15:54 | Outpatient (CLI) | payer MEDICARE, BC, SELFPAY ==
--- NOTE | ~2025-01-20 | MM_ITS ---
EXAMINATION: MM screening [facility] BI w rudolph HISTORY: Screening mammogram TECHNIQUE: Craniocaudal and mediolateral oblique 3-D tomosynthesis images were obtained and synthetic 2-D images were generated. CAD analysis was submitted and interpreted. COMPARISON: 01/19/2024, 07/24/2022, 06/19/2021, 05/24/2020 BREAST PARENCHYMAL COMPOSITION:Not Dense. There are scattered areas of fibroglandular density. FINDINGS: No suspicious mass, calcification, or architectural distortion are identified in either cameron ast to suggest malignancy. There has been no suspicious interval change. IMPRESSION: No mammographic evidence of malignancy. Recommend routine screening mammography in one year. BI-RADS Category 1: Negative Reviewed, dictated and finalized at location .
--- OUTSIDE RECORDS SUMMARY | 2025-01-20 17:29 | XMS_ITS | Clinical Summary ---
Author Organization [facility] Address [address] [place] [id number] Care Team Providers Care Game Programer Name Role Phone Srini Albert MD Primary Care Prov ider Yash Skinner MD Unavailable [phone] Allergies Active Allergy Reactions Criticality Noted Date Comments Adhesive Rash Medium 11/13/2022 Fd And C Blue No.1 Unknown 03/08/2024 Morphine Nausea only Low Penicillin Rash Medium 02/10/2023 Pruritic red rash total body, especially arms and face Medications clonazePAM (KlonoPIN) 0.5 mg tablet daily 09/24/2022 Active ezetimibe (ZETIA) 10 mg tablet Take 1 tablet (10 mg total) by mouth daily 08/17/2022 Active glimepiride (AMARYL) 2 mg tablet Take 1.5 tablets (3 mg total) by mouth daily 10/22/2022 Active lisinopriL (PRINIVIL,ZESTR IL) 40 mg tablet Take 1 tablet (40 mg total) by mouth daily 10/23/2022 Active metoprolol XL (TOPROL-XL) 100 mg 24 hr tablet Take 1 tablet (100 mg total) by mouth daily 10/16/2022 Active metFORMIN XR (GLUCOPHAGE XR) 500 mg 24 hr tablet Take 1 tablet (500 mg total) by mouth 3 (three) times a day 10/23/2022 Active omeprazole (PriLOSEC) 20 mg capsule Take 1 capsule (20 mg total) by mouth daily 10/07/2022 Active hydroCHLOROthia zide (HYDRODIURIL) 25 mg tablet 11/18/2022 Active Active Problems Problem Noted Date Diagnosed Date Preop cardiovascular exam 08/29/2023 Family history of ischemic heart disease 023 Epigastric abdominal pain 11/13/2022 Overview (11/13/2022): Added automatically from request for surgery [id number] Altered bowel habits 11/13/2022 Overview (11/13/2022): Added automatically from request for surgery [id number] Epigastric pain 11/13/2022 Overview (11/13/2022): Added automatically from request for surgery [id number] Pure hypercholesterolemia 03/26/2014 Overview (02/13/2017): PURE HYPERCHOLESTEROLEM Type 2 diabetes mellitus 03/26/2014 Overview (02/13/2017): DMII WO CMP NT ST UNCNTR Hypertension 03/26/2014 Overview (02/14/2017): HYPERTENSION NOS Surgical History Surgery Date Site/Laterality Comments OTHER SURGICAL HISTORY 2011 Bilateral torn meniscus: knee surgery x 2 APPENDECTOMY 11/10/1979 - 11/09/1980 CHOLECYSTECTOMY 11/10/1979 - 11/09/1980 HERNIA REPAIR 11/10/1989 - 11/09/1990 with mesh (2 prior surgeries) TUBAL LIGATION 02/21/1987 Medical History Medical History Date Comments Type 2 diabetes mellitus (HCC) D iabetes type 2 Hypertension Hypertension Hyperlipidemia Hyperlipidemia Hx Other Medical torn meniscus Colon cancer (HCC) GERD (gastroesophageal reflux disease) Arthritis Family History Medical History Relation Name Comments Coronary artery disease Brother also had heart transplant Esophageal cancer Brother Colon cancer Maternal Grandmother at adva nced age Diabetes Mother Sheeba Mcgraw Gallbladder disease Mother Sheeba Mcgraw Stroke Mother Sheeba Mcgraw Diabetes type II Other 1 Family hist ory of Diabetes -Type 2; Hypertension Other 2 Family history of Hypertension; Coronary artery disease Sister 2 si sters with CAD Gallbladder disease Sister Relation Name Status Comments Brother Maternal Grandmother Mother Sheeba Mcgraw Other 1 Other 2 Sister Social History Tobacco Use Types Packs/Day Years Used Date Smoking Tobacco: Never Smokeless Tobacco: Never Tobacco Cessation:Counseling Given: Not Answered Alcohol Use Standard Drinks/Week Comments No 0 (1 standard drink = 0.6 oz pur e alcohol) AUDIT-C Answer Date Recorded Q1: How often do you have a drink containing alcohol? Never 01/08/2023 Q2: How many drinks containi ng alcohol do you have on a typical day when you are drinking? Patient does not drink Q3: How often do you have si x or more drinks on one occasion? 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 Gender Identity Not on file Sexual Orientation Not on file Obstetrics History Last Filed Vital Signs Vital Sign Reading Time Taken Comments Blood Pressure 120/68 03/08/2024 8:53 AM CDT Pulse 68 03/08/2024 8:53 AM CDT Temperature 36.7 C (98.1 F) 02/10/2023 1:44 PM CDT Respiratory Rate 18 01/08/2023 9:25 AM IRRIGATION SUPERVISOR Oxygen Saturation 97% 03/08/2024 8:53 AM CDT Inhaled Oxygen Concentration - - Weight 107.3 kg (236 lb 8 oz) 03/08/2024 8:53 AM CDT Height 158.8 cm (5' 2.5 ) 03/08/2024 8:53 AM CDT Body Mass Index 42.57 03/08/2024 8:53 AM CDT Plan of Treatment Health Maintenance Due Date Last Done Comments Albumin Creatinine Ratio, Urine 1955 Breast Cancer Screening-Mammogram 1955 Depression Screening 1955 Hemoglobin A1C 1954 Hepatitis C Screening 1955 Osteoporosis Screening-Bone Density Scan 1955 eGFR 1955 Dilated Eye Exam 1954 Foot Exam 1955 DTaP/Tdap/Td Vaccine (1 - Tdap) 1965 Hepatitis B Screening 1972 Pneumococcal vaccine 65+ (1 of 2 - PCV) 1973 Zoster Vaccine (1 of 2) 2004 Well Visit 65+ 2019 Fall Risk Assessment 01/09/2024 01/08/2023 Covid-19 Vaccine (5 - 2023-2 5 season) 2024 08/29/2022, 10/09/2021, 02/01/2021, Additional history exists Influenza Vaccine (#1) 2024 08/29/2022, 2020 Lipid Panel 03/08/2025 03/08/2024, 01/26/2013 Colon Cancer Screening-Colonoscopy 01/08/20332022 Procedures Procedure Name Priority Date/Time Associated Diagnosis Comments POCT LIPID PANEL Routine 03/08/2024 9:25 AM CDT Pure hypercholesterolemia COLONOSCOPY 01/08/2023 8:23 AM IRRIGATION SUPERVISOR from Last 3 Months or Most Recently Relevant to Health Maintenance Results * POCT lipid panel (03/08/2024 9:25 AM CDT) Cholesterol, POC 197 mg/dL Comment:GLU = 182 HDL, POC 35 mg/dL Triglycerides, POC 227 mg/dL LDL Cholesterol POC 116 mg/dL Chol/HDL Ratio, POC 3.3 Non-HDL Cholesterol, POC 162 mg/dL Cholesterol Total, POC 197 mg/dL Capillary blood 03/08/2024 9 :25 AM CDT Shannan Lincoln MD POINT OF CARE TEST O RDERABLES Final Result * COLONOSCOPY (01/08/2023 8:23 AM IRRIGATION SUPERVISOR) Anatomical Region Laterality Modality Other Narrative Procedure Note Mari Gutierrez MD - 01/08/2023 8:23 AM [facility] Patient Name: Nuvia Vargas Procedure Date: 01/08/2023 8:23 AM Date of : 1955 Admit Type: Outpatient Age: 67 Gender: Female Attending MD: Mari Gutierrez M.D. Room: [facility] ENDOSCOPY ROOM 9 Note Status: Finalized Procedure: Colonoscopy Indications: Last colonoscopy: 2015, Clinically significant diarrhea of unexplained origin Referring MD: Srini Albert M.D. Providers: Mari Gutierrez M.D. Medicines: Monitored Anesthesia Care Complications: No immediate complications. Estimated Blood Loss: Estimated blood loss was minimal. Procedure: Pre-Anesthesia Assessment: - Immediately prior to administration ofmedications, the patient was re-assessed for adequacy to receive sedatives. - The risks and benefits of the procedure and the sedation options and risks were discussed with the patient. All questions were answered and informed consent was obtained. The benefits, risks and alternatives of theprocedure and sedation were discussed and informed consentwas obtained. All questions were answered. Please referto the signed informed consent document in the medical record. The scope was passed under direct vision.The PCF H190L [id number] endoscope was introduced through the anus and advanced to the terminal ileum, with identification of the appendiceal orifice and IC valve. The colonoscopy was performed without difficulty. The patient tolerated the procedurewell. The bowel preparation used was GoLYTELY via splitdose instruction. The quality of the bowel preparationwas evaluated using the BBPS ([place] Bowel Preparation Scale) with scores of: Right Colon = 3, Transverse Colon = 3 and Left Colon = 3 (entire mucosa seenwell with no residual staining, small fragments of stoolor opaque liquid). The total BBPS score equals 9. The quality of the bowel preparation was evaluatedusing the BBPS (Doran Bowel Preparation Scale) withscores of: Right Colon = 2 (minor amount of residual staining, small fragments of stool and/or opaque liquid, but mucosa seen well), Transverse Colon = 3 (entire mucosa seen well with no residual staining, small fragments of stool or opaque liquid) and Left Colon = 3 (entire mucosa seen well with no residual staining, small fragments of stool or opaqueliquid). The total BBPS score equals 8. The quality of the bowel preparation was good. The terminal ileum, ileocecal valve, appendiceal orifice, and rectumwere photographed. The quality of the bowel preparationwas good. Findings: The perianal exam findings include a perianal fungal rash. An 11 mm polyp was found in the cecum. The polyp was sessile. Thepolyp was removed with a hot snare. Resection and retrieval were complete. Estimated blood loss was minimal. A 5 mm polyp was found in the proximal ascending colon. The polyp was sessile. The polyp was removed with a cold snare. Resection and retrieval were complete. Estimated blood loss was minimal. A 2 mm polyp was found in the mid ascending colon. The polyp was sessile. The polyp was removed with a cold biopsy forceps. Resectionand retrieval were complete. Estimated blood loss was minimal. Normal mucosa was found in the entire colon. Biopsies for histologywere taken with a cold forceps from the entire colon for evaluation of microscopic colitis. Multiple diverticula were found in the sigmoid colon. No additional abnormalities were found on retroflexion. Impression: - Perianal fungal rash found on perianal exam. - One 11 mm polyp in the cecum, removed with a hot snare. Resected and retrieved. - One 5 mm polyp in the proximal ascending colon, removed with a cold snare. Resected andretrieved. - One 2 mm polyp in the mid ascending colon,removed with a cold biopsy forceps. Resected andretrieved. - Normal mucosa in the entire examined colon.Biopsied. - Diverticulosis in the sigmoid colon. Recommendation: - Patient has a contact number available for emergencies. The signs and symptoms of potential delayed complications were discussed with thepatient. Return to normal activities tomorrow. Written discharge instructions were provided to thepatient. - Resume previous diet. - Continue present medications. - Await pathology results. - Repeat colonoscopy in 3 - 5 years forsurveillance based on pathology results. - Return to my office at appointment to bescheduled. - Topical medication recommended for rash. Attending Participation: I personally performed the entire procedure. Electronically signed by Mari Gutierrez MD Mari Gutierrez M.D. 01/08/2023 9:17:00 AM . Number of Addenda: 0 Note Initiated On: 01/08/2023 8:23 AM Recognized by the [place] [employer] for promoting quality in endoscopy Mari Gutierrez MD ENDOSCOPY PROCEDURES [place] Result from Last 3 Months or Most Recently Relevant to Health Maintenance Insurance MEDICARE [facility] MEDICARE [facility] MEDICARE [facility] Advance Directives For more information, please contact: [phone] * Full Code (Latest Code Status on File) Date Activated Date Inactivated Comments 01/08/2023 7:14 AM 01/08/2023 2:17 PM Care Teams Game Programer Relationship Specialty Start Date End Date Srini Albert MD [address] [place] [address] PCP - General 02/05/12 Yash Skinner MD [address] [place] [address] Referring Physician Orthopedic Surgery 08/29/23
--- OUTSIDE RECORDS SUMMARY | 2025-01-20 17:29 | XMS_ITS | Referral Summary ---
Author Organization [facility] Address [address] [place] [id number] Care Team Providers Care Quilting Machine Helper Name Role Phone Srini Albert MD Primary Care Prov ider Yash Skinner MD Unavailable [phone] Allergies Active Allergy Reactions Criticality Noted [...] (11/13/2022): Added automatically from request for surgery [id number] Altered bowel habits 11/13/2022 Overview (11/13/2022): Added automatically from request for surgery [id number] Epigastric pain 11/13/2022 Overview (11/13/2022): Added automatically from request for surgery [id number] Pure hypercholesterolemia 03/26/2014 Overview (02/13/2017): PURE HYPERCHOLESTEROLEM Type 2 diabetes mellitus 03/26/2014 Overview (02/13/2017): DMII WO CMP NT ST UNCNTR Hypertension 03/26/2014 Overview (02/14/2017): HYPERTENSION NOS Social History Tobacco Use Types Packs/Day Years [...] on file 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 Gender Identity Not on file Sexual Orientation Not on file Last Filed Vital Signs Vital Sign Reading Time Taken Comments Blood Pressure 120/68 03/08/2024 8:53 AM CDT Pulse 68 03/08/2024 8:53 AM CDT Temperature 36.7 C (98.1 F) 02/10/2023 1:44 PM CDT Respiratory Rate 18 01/08/2023 9:25 AM BANQUET FOOD SERVER Oxygen Saturation 97% 03/08/2024 8:53 AM CDT Inhaled Oxygen Concentration - - Weight 107.3 kg (236 lb 8 oz) 03/08/2024 8:53 AM CDT Height 158.8 cm (5' 2.5 ) 03/08/2024 8:53 AM CDT Body Mass Index 42.57 03/08/2024 8:53 AM CDT Plan of Treatment Not on file Procedures Procedure Name Priority Date/Time Associated Diagnosis Comments POCT LIPID PANEL Routine 03/08/2024 9:25 AM CDT Pure hypercholesterolemia COLONOSCOPY 01/08/2023 8:23 AM BANQUET FOOD SERVER from Last 3 Months or Most Recently [...] Final Result * COLONOSCOPY (01/08/2023 8:23 AM BANQUET FOOD SERVER) Anatomical Region Laterality Modality Other Narrative Procedure Note Mari Gutierrez MD - 01/08/2023 8:23 AM [facility] Patient Name: Nuvia Vargas Procedure Date: 01/08/2023 8:23 AM Date of : 1955 Admit Type: Outpatient Age: 67 Gender: Female Attending MD: Mari Gutierrez M.D. Room: [facility] ENDOSCOPY ROOM 9 Note Status: Finalized Procedure: [...] The scope was passed under direct vision.The PC H190L [id number] endoscope was introduced through the anus and advanced to the terminal ileum, with identification of the appendiceal orifice and IC valve. The colonoscopy was performed without difficulty. The patient tolerated the procedurewell. The bowel preparation used was GoLYTELY via splitdose instruction. The quality of the bowel preparationwas evaluated using the BBPS ([place] Bowel Preparation Scale) with scores of: Right Colon = 3, Transverse Colon = 3 and Left Colon = 3 (entire mucosa seenwell with no residual staining, small fragments of stoolor opaque liquid). The total BBPS score equals 9. The quality of the bowel preparation was evaluatedusing the BBPS ([place] Bowel Preparation Scale) withscores of: Right Colon [...] On: 01/08/2023 8:23 AM Recognized by the [place] [employer] for promoting quality in endoscopy Mari Gutierrez MD ENDOSCOPY PROCEDURES [place] Result from Last 3 Months or Most Recently Relevant to Health Maintenance Insurance MEDICARE [facility] MEDICARE [facility] MEDICARE [facility] Advance Directives For more information, please contact: [phone] * Full Code (Latest Code Status on File) Date Activated Date Inactivated Comments 01/08/2023 7:14 AM 01/08/2023 2:17 PM Care Teams Quilting Machine Helper Relationship Specialty Start Date End Date Srini Albert MD [address] [place] [address] PCP - General 02/05/12 Yash Skinner MD [address] [place] [address] Referring Physician Orthopedic Surgery 08/29/23
--- OUTSIDE RECORDS SUMMARY | 2025-01-20 17:29 | XMS_ITS | Clinical Summary ---
Author Organization [facility] Address [facility] [place] [address] Care Team Providers Care Sports Marketing Coordinator Name Role Phone Unavailable Primary Care Provider Unavailabl e Social History Tobacco Use Types Packs/Day Years Used Date Smoking Tobacco: Never Assessed Comments Unknown Sex and Gender Information Value Date Recorded Sex Assigned at Not on file Legal Sex Female 6:29 PM CDT Gender Identity Not on file Sexual Orientation Not on file Plan of Treatment Health Maintenance Due Date Last Done Comments Colorectal Cancer Screening Colonoscopy (10 Years) 1955 Hepatitis C 1972 DTaP, Tdap and Td Vaccines ( 1 - Tdap) 1973 Mammogram Screening 1994 Zoster Vaccines (1 of 2) 2004 Dexa Scan (General) 2019 Pneumococcal Vaccine: 65+ Ye ars (1 of 1 - PCV) 2019 COVID-19 Vaccine (2023-2 5 season) 2024 Influenza Adult (#1) 2024 RSV Immunization or 60+ Years (1 - 1-dose 75+ series) 2029 Meningococcal B Vaccine Aged Out No l onger eligible based on patient's age to complete this topic Meningococcal Vaccine Aged Out No vinicio ting eligible based on patient's age to complete this topic RSV Immunizations Under 20 Months Aged Out No longer eligible based on patient's age to complete this topic
--- OUTSIDE RECORDS SUMMARY | 2025-01-20 17:29 | XMS_ITS | Data Portability ---
Author Organization [place] [facility], Main Office Address [address] [place] [address] Care Team Providers Care Medical Office Clerk Name Role Phone TIM MENDOZA Primary Care Provider TIM MENDOZA Referring Provider Assessment Encounter Date Assessment Date Assessment LastModified by Organization Details LastModified Time 04/17/2023 04/17/2023 Patient has severe primary osteoarthritis both knee joints. We talked about treatment options today in detail Dr. Zamorano talked to her about total knee arthroplasty as well including risks benefits limitations and alternatives. She is going to try to lose a little bit of weight over the next few months certainly this would make it safer for her to do surgery. In the meantime at her request under sterile conditions I injected both knee joints in the office today with 4 cc 0.5% ropivacaine and 20 mg of Kenalog each. Patient tolerated procedure well. We will see her back again in a couple of months to see what impact treatment has had see if she is making progress on weight loss. She voiced understanding agrees above plan she will call for any further problems difficulties or questions. [email or web address] Not available 04/17/2023 09:48:31 07/30/2023 07/30/2023 X-rays of both knees from 04/17/2023 are reviewed. She has ovdl-ic-kadv medial compartment osteoarthritis in both knees. She had moderate patellofemoral arthritis on the left, mild patellofemoral arthritis on the right. Impression: Patient has severe medial compartment osteoarthritis in both knees. Her left knee is most symptomatic and she would like to proceed with left knee replacement and after she has recovered proceed with right knee replacement. I talked to her about using a cortisone shot in the right knee time of her left knee replacement surgery and she would like to do that. I have given of the ortho info handout on total knee arthroplasty for her review. I have discussed risks of surgery at length. I explained to be numbness lateral to the incision and that she may have difficulty kneeling and some patients have sensitivity in the fronts of her knees after surgery. I have discussed the risk of infection with her. She had a recent bridge placed and was recently evaluated by the deafness in her remaining teeth are okay. I explained that I would recommend that she take antibiotics before dental work in the future for ever. With her history of diabetes hernia system is not normal and she is at higher risk for infection during her lifetime. Because of her diabetes and her obesity a would recommend extended oral antibiotics after surgery to mitigate the risk of infection following surgery. Risk of blood clots discussed. She has no personal or family history of DVT. I discussed my preference for using Eliquis for 2 weeks after surgery followed by baby aspirin twice daily for 4 additional weeks. We discussed the risk of failure of knee replacement and need for revision surgery. Risk of component loosening instability stiffness fracture nerve injury bleeding transfusion were discussed. Risk of medical complications such as heart attack stroke pulmonary embolism and were reviewed. I would recommend that in addition to seeing Dr. Gottlieb before surgery that she have a cardiology evaluation as she has multiple risk factors for underlying heart disease. She did see Dr. Ybarra actually 1 year ago at the request of her GI doctor before undergoing EGD and colonoscopy and was cleared for that purpose. All of her questions were answered. 40 minutes were spent in total care this patient more than half the time spent in kxje-mb-oviq care. [email or web address] Not available 07/30/2023 19:02:01 10/20/2023 10/20/2023 HPI: Patient returns. She is now 13 days out from left total knee arthroplasty. Overall doing very well. She has little more than day left of her Eliquis. She has another day and half of antibiotics. She is doing outpatient therapy. Overall she feels she is doing very well. Physical exam: Patient's incision is well healed. She has some small red petechiae on her skin and she thinks that this is due to the dressing in the adhesive. The redness is around the incision but there is no affect on the incision itself. She has no increased swelling in either lower extremity. Range of motion is from 0-120 degrees. Impression: Patient doing well 13 days out left total knee arthroplasty. She will finish up the Eliquis and then start baby aspirin twice a day. She can increase the Celebrex twice a day at that point instructions were written. She will continue with her therapy. She can transition to the cane as her comfort allows. We will see her back in 2 weeks for re-evaluation. Not available 10/20/2023 16:36:11 11/05/2023 11/05/2023 HPI: Patient returns. She is 1 month out from left total knee arthroplasty. She continues do very well. She is having minimal pain. She is continuing with outpatient therapy. She is on her aspirin twice a day. She has run out of her Celebrex and we will we will up for her today. Physical exam: Patient is walking very well today without limp or assistance. Incision is well healed. She still has some mild red petechiae around the incision. She had this last time I saw her. She states that it does come and go. There is still couple areas where the glue is still on the skin and the petechiae seems to be closer to these areas and the areas where the glue is completely gone. No effusion in the knee. Range of motion is from 0-135 degrees. No increased swelling in the lower extremity. Impression: Patient is doing well 1 month out left total knee arthroplasty. She is going to stop formal physical therapy at this point. She will continue with her baby aspirin twice a day as well Celebrex twice a day. I did talk with her that I think there is going to be a concern with the glue and surgery if we have to do her right total knee. It is unclear whether not she may be having some reaction to the glue and if so her 2nd exposure may be rather severe which we have seen in the past happen. I discussed this with her. We did take a picture of it today. If she decides to talk about having the right knee replaced in the future we will readdress this at that time. She also had a horrible skin rash to both of her buttocks about 7 days after surgery. She never did tell us about this or call us about this. She did have a picture on her phone and she had extreme bright red/ purplish skin discoloration to both of her buttocks. There is no blistering. Skin healed uneventfully and has become asymptomatic. Is unclear what exactly may have caused this as well. The fact that it was only on her buttocks it would be more thought that this would be a contact dermatitis thing but she had no discoloration to the rest of her buttocks only the central area and nothing on her back. She does have a picture that and I think this will need to be thought about prior to doing surgery on the right as well. See back in 2 weeks with x-rays of the right knee. Not available 11/05/2023 11:36:22 11/19/2023 11/19/2023 HPI: Patient returns now she is 6 weeks out from left total knee. She continues do very well. Having no real symptoms in the knee. The skin around the incision is looking better. She did get all the glue well off and the red petechiae that was there is dissipating quickly. Physical exam: 68-year-old female alert pleasant. Incision is well healed. Minimal swelling in the left knee. Range motion is from 0-135 degrees. Excellent stability in the knee both in flexion and extension. No increased swelling in either lower extremity. She is walking very well today without limp or assistance. Impression: Patient is doing well 6 weeks out left total knee arthroplasty. We will plan seeing her back at her 1 year anniversary or sooner if she has problems. She does have severe osteoarthritis in the right knee. She had a cortisone injection in the knee at the time surgery, 6 weeks ago, she can repeat these often as every 3 months. At some point she feels she is going to want have the right knee replaced. We talked again about the fact that she did have some skin reaction from the glue and I think it will be best to avoid the glue as the 2nd exposure could be significantly worse. Long-term risk of infection discussed. See her back at 1 year anniversary Not available 11/19/2023 11:26:02 Plan of Treatment Reminders Order Date Submit Date Provider Last Modified By Organization Details Last Modified Time Details Appointments None recorded. Lab None recorded. Referral None recorded. Procedures injection/a spiration joint/bursa (PROC) - in office procedure, administere d by provider 2022 023 [email or web address] In-Office Order, Internal Use Only DO Not Attach Compendium DO Not Attach Compendium, Do Not Delete/merge, [id number] 3 09:13:43 Surgeries None recorded. Imaging XR, knee 2023 024 [email or web address] [facility] [place], [address], [place], [address], 4 07:35:20 XR, knee 2022 023 [email or web address] [facility] [place], [address], [place], [address], 3 09:59:16 Medication Orders Celebrex 200 mg capsule 2022 023 [email or web address] [id number], [address], [place], [place], [id number], 4 10:09:42 Kenalog 10 mg/mL suspension for injection 2022 023 [email or web address] [id number], [address], [place], [place], [id number], 3 09:59:16 ropivacaine (PF) 5 mg/mL (0.5 %) injection solution 2022 023 [email or web address] [id number], [address], [place], [place], [id number], 3 09:26:27 Patient TargetsNo targets recorded. Patient InstructionsNo instructions recorded. Reason for Referral None Reported. Results Created Date Observation Date Name Description Value Unit Range Abnormal Flag Note LastModifiedBy Organization Detail LastModifiedTime 04/17/20 XR, knee No observ ation record ed. [email or web address] [facility] [place] [address], [place], [address], 04/17/2023 09:49:23 10/08/20 23 10/08/2023 XR, knee No observ ation record ed. [email or web address] [facility] [address], [place], [address], 10/10/2023 11:07:42 11/19/19 24 XR, knee No observ ation record ed. [facility] [place] [address], [place], [address], 11/19/2023 11:24:14 Result Notes None recorded. Problems Name Problem SNOMED Code Status Onset Date Resolution Date Notes Provider Name and Address Organization Details Recorded Time Morbid obesity 624548073 Active 2020 Not Available [facility] 3 13:52:49 Osteoarthr itis of knee 705331328 Active Not Available [facility] 3 13:52:49 Osteoarthr itis of left knee joint 8598981512930 09 Active 2020 Not Available [facility] 3 13:52:49 Osteoarthr itis of right knee joint 0396015596587 00 Active 2020 Not Available [facility] 3 13:52:50 Inflammato ry disorder of extremity 456155471 Active Not Available [facility] 3 13:52:50 Osteoarthr itis 973967491 Active Not Available [facility] 3 13:52:50 Pain of bilateral knee joints 5096895131518 04 Active 2021 Not Available [facility] 3 13:52:50 Bilateral osteoarthr itis of knees 6615904952978 07 Active 2022 Monika Shabazz, ATC L ann marie, [place] [facility] 3 14:22:57 Problem Notes None recorded. Procedures Surgical History Date Name Laterality Status Provider Name and Address Organization Details Recorded Time Knee Surgery completed Not Available [facility] h 01/08/2023 13:52:11 Hernia Repair completed Not Available [facility] 01/08/2023 13:52:11 Imaging Results Imaging Date Name Status LastModified by [facility] Details LastModified Time 04/17/2023 XR, knee completed [email or web address] [facility] [place] [address], [place], [address], 04/17/2023 09:49:23 10/08/2023 XR, knee completed [email or web address] [facility] [address], [place], [address], 10/10/2023 11:07:42 11/19/2023 XR, knee completed [facility] [place] [address], [place], [address], 11/19/2023 11:24:14 Procedure Notes None recorded. Medical Equipment None Reported. Allergies Allergen ID Allergen Name Allergen Category Reaction Reaction Severity Criticality Documentation Date Start Date Code Code System Note Provider Name and Address Organization Details Recorded Time 25570 morphine medicatio n nausea Not available Not available 01/08/2023 7052 RxNorm Not Available [facility] 3 13:55:29 89615 adhesive environme nt,medica tion rash Not available Not available 01/08/2023 79618 UNK Steri strip s and glue Not Available [facility] 3 13:55:29 Medications Name Sig Start Date Stop Date Status Note LastModified by Organization Details LastModified Time celecoxib 200 mg capsule TAKE 2 CAPSULES BY MOUTH EVERY DAY 11/19 completed Not Available Not Available Not Available prednisone 10 mg tablet 01/14 completed Not Available Not Available Not Available atorvastati n 20 mg tablet TK 1 T PO D FOR CHOLESTER OL 08/30 completed Not Available Not Available Not Available metoprolol succinate ER 50 mg tablet,exte nded release 24 hr TAKE 1 TABLET BY MOUTH DAILY 01/14 completed Not Available Not Available Not Available bupivacaine HCl 0.5 % (5 mg/mL) injection solution Take 40 mg by injection route. 01/14 completed Not Available Not Available Not Available clonazepam 0.5 mg tablet TAKE 1/2 TO 1 TABLET BY MOUTH DAILY AT BEDTIME NEEDED FOR RESTLESS LEGS. ADMINISTE R 30 MINUTES BEFORE BEDTIME. active Not Available Not Available No t Available metoprolol succinate ER 100 mg tablet,exte nded release 24 hr TAKE 1 TABLET BY MOUTH DAILY active Not Available Not Available No t Available penicillin V potassium 500 mg tablet TAKE 1 TABLET BY MOUTH FOUR TIMES DAILY UNTIL ALL TAKEN 07/30 completed Not Available Not Available Not Available amlodipine 5 mg tablet TAKE 1 TABLET BY MOUTH DAILY 01/14 completed Not Available Not Available Not Available acetaminoph en 500 mg tablet TAKE 2 TABLETS BY MOUTH EVERY 6 HOURS 11/05 completed Not Available Not Available Not Available glimepiride 2 mg tablet TAKE 1 AND 1/2 TABLETS BY MOUTH DAILY active Not Available Not Available No t Available glimepiride 1 mg tablet TK 1 T PO Q DAY WITH THE 2MG 07/30 completed Not Available Not Available Not Available prednisone 10 mg tablets in a dose pack Take 1 tab by mouth, 3 times a day for 3 daysTake 1 tab by mouth 2 times a day for 2 daysTake 1 tab by mouth once a day for 1 day 01/14 completed Not Available Not Available Not Available nystatin-tr iamcinolone 100,000 unit/gram-0 .1 % topical ointment APPLY TOPICALLY TO THE AFFECTED AREA TWICE DAILY 07/30 completed Not Available Not Available Not Available Kenalog 10 mg/mL suspension for injection Take 4 mL by injection route. 2022 active [facility]: 0003- 0494- 20 Not Available Not Available Not Available cephalexin 500 mg capsule 08/30 completed Not Available Not Available Not Available omeprazole 20 mg capsule,del ayed release TAKE 1 CAPSULE BY MOUTH TWICE DAILY active Not Available Not Available No t Available hydrochloro thiazide 25 mg tablet TAKE 1 TABLET BY MOUTH DAILY active Not Available Not Available No t Available methylpredn isolone 4 mg tablets in a dose pack TK UTD 08/30 completed Not Available Not Available Not Available celecoxib 100 mg capsule TAKE 1 CAPSULE BY MOUTH DAILY AT 8 AM 11/05 completed Not Available Not Available Not Available lisinopril 40 mg tablet TAKE 1 TABLET BY MOUTH DAILY active Not Available Not Available No t Available cefdinir 300 mg capsule TAKE 1 CAPSULE BY MOUTH EVERY 12 HOURS 11/05 completed Not Available Not Available Not Available metformin ER 500 mg tablet,exte nded release 24 hr TAKE 3 TABLETS BY MOUTH DAILY active Not Available Not Available No t Available oxycodone 5 mg tablet TAKE 1 TABLET BY MOUTH EVERY 4 HOURS 11/05 completed Not Available Not Available Not Available ezetimibe 10 mg tablet TAKE 1 TABLET BY MOUTH DAILY active Not Available Not Available No t Available Aleve 01/14 completed Not Available Not Available Not Available omeprazole 07/30 completed Not Available Not Available Not Available lidocaine (PF) 10 mg/mL (1 %) injection solution In office injection administe red by the provider 01/14 completed [facility]: 0409- 4276- 17 Not Available Not Available Not Available lidocaine (PF) 5 mg/mL (0.5 %) injection solution Take 30 mg by injection route. 01/14 completed Not Available Not Available Not Available GaviLyte-G 236 gram-22.74 gram-6.74 gram-5.86 gram oral solution TAKE 4000 ML BY MOUTH ONCE FOR 1 DOSE IN INSTRUCTI ONSN SENT TO YOUR MYCHART 07/30 completed Not Available Not Available Not Available Suprep Bowel Prep Kit 17.5 gram-3.13 gram-1.6 gram oral solution MIX AND DRINK UTD 01/14 completed Not Available Not Available Not Available ropivacaine (PF) 5 mg/mL (0.5 %) injection solution Take 8 mL by injection route. 07/30 completed [facility] 71036 -064- 01 Not Available Not Available Not Available Contour Next Test Strips USE TO TEST ONCE DAILY active Not Available Not Available No t Available Ultra Thin Lancets 30 gauge USE TO TEST BLOOD SUGAR ONCE DAILY active Not Available Not Available No t Available Eliquis 2.5 mg tablet TAKE 1 TABLET BY MOUTH TWICE DAILY FOR 14 DAYS 11/05 completed Not Available Not Available Not Available Stimulant Laxative Plus 8.6 mg-50 mg tablet TAKE 2 TABLETS BY MOUTH TWICE DAILY 11/19 completed Not Available Not Available Not Available Vitals Date Recorded Body height Body mass index (BMI) Body weight Provider Name and Address Organization Details Last Updated DateTime 04/17/2023 160.02 cm 42 kg/m2 318543.39 g MIRA Liao - [place] [facility] 04/17/2023 09:48:05 Date Recorded Body height Body mass index (BMI) Body weight Provider Name and Address Organization Details Last Updated DateTime 07/30/2023 158.75 cm 39.8 kg/m2 967105.91 g Ana [facility] 07/30/2023 09:41:00 Date Recorded Body height Provider Name an d Address Organization Details Last Updated DateTime 10/20/2023 158.75 cm Ana Xavier [facility] 10/20/2023 15:54:06 Date Recorded Body height Provider Name an d Address Organization Details Last Updated DateTime 11/05/2023 158.75 cm Ana Xavier [facility] 11/05/2023 10:05:45 Date Recorded Body height Provider Name an d Address Organization Details Last Updated DateTime 11/19/2023 158.75 cm Ana Xavier [facility] 11/19/2023 10:09:30 Social History Question Answer Notes LastModified by Organizat ion Details LastModified Time What Is Your Level Of Alcohol Consumption? None [id number] Information not available 01/08/2023 Do You Or Have You Ever Used Any Other Forms Of Tobacco Or Nicotine? No [id number] Information not available 01/08/2023 Sex: Unknown Functional Status None recorded. Mental Status None recorded. Family History Relationship Description Onset Age of this Age Resolved Age Notes LastModified by Organization Details LastModified Time Father Family history of malignant neoplasm [id number] Not available 01/08/2023 13:52:12 Brother Family history of malignant neoplasm MIGRATION.515 [id number] Not available 01/08/2023 13:52:12 Brother Diabetes mellitus [id number].818 [id number] Not available 01/08/2023 13:52:12 Mother Heart disease [id number].757 [id number] Not available 01/08/2023 13:52:12 Mother Diabetes mellitus MIGRATION.819 [id number] Not available 01/08/2023 13:52:12 Sister Diabetes mellitus [id number].963 [id number] Not available 01/08/2023 13:52:13 Mother Family history of stroke [email or web address] Not available 05/2023 14:21:59 Mother Hypertensive disorder [email or web address] Not available 05/2023 14:22:08 Sister Family history of stroke [email or web address] Not available 05/2023 14:21:59 Medical History Condition Response ARTHRITIS Y DIABETES, TYPE Y HYPERTENSION Y Gynecological HistoryNo gynecological history recorded. Obstetrics History GPAL:G 0 P 0 0 0 0 Past Encounters Encounter ID Performer Location Encounter Start Date Encounter Closed Date Diagnosis/Indication Diagnosis SNOMED-CT Code Diagnosis ICD10 Code Diagnosis Note [id number] [facility] [place] [address] [place] [address] 08/30/2021 00:00:00 09/04/2021 12:58:50 [id number] [facility] [place] [address] [place] [address] 10/23/2021 00:00:00 10/23/2021 14:27:36 [id number] [facility] [place] [address] [place] [address] 11/29/2021 00:00:00 11/29/2021 09:51:50 [id number] [facility] [place] [address] [place] [address] 03/28/2022 00:00:00 03/28/2022 11:43:13 [id number] [facility] [place] [address] [place] [address] 04/25/2022 00:00:00 04/25/2022 09:01:18 [id number] [facility] [place] [address] [place] [address] 08/05/2022 00:00:00 08/05/2022 10:00:00 [id number] NATALIE Mckeon [facility] [place] [address] [place] [address] 01/14/2023 13:56:47 01/14/2023 15:44:45 Pain of bilateral knee joints 5446121927 36904 M25.561 M25.562 Bilateral osteoarthritis of knees 5412218923 12087 M17.0 [id number] NATALIE Mckeon [facility] [place] [address] [place] [address] 04/17/2023 09:06:02 04/17/2023 09:48:03 Bilateral osteoarthritis of knees 9669742533 83639 M17.0 Pain of bi lateral knee joints 8232892488 58696 M25.561 M25.182 [id number] Yash Skinner MD [facility] [place] [address] [place] [address] 07/30/2023 09:03:33 08/01/2023 09:50:30 Osteoarthritis of left knee joint 7814034880 52773 M17.12 Bilateral osteoarthritis of knees 0220470378 91592 M17.0 [id number] NATALIE Whitlock [facility] [place] [address] [place] [address] 10/20/2023 15:27:25 10/20/2023 16:57:53 Osteoarthritis of left knee joint 8798593515 39867 M17.12 [id number] NATALIE Whitlock [facility] [place] [address] [place] [address] 11/05/2023 09:56:02 11/05/2023 11:49:58 History of left total knee replacement 3952233935 072916 Z96.240 [id number] NATALIE Whitlock [facility] [place] [address] [place] [address] 11/19/2023 10:06:27 11/19/2023 11:29:11 History of left total knee replacement 5099053521 022075 Z96.652 Health Concerns Section Related Observation LastModified by Organization Detai ls LastModified Time None Recorded Concern Status LastModified by Organization Details LastModified Time None Recorded Advance Directives Directive None Recorded Payers Encounter Date Sequence Insurance Name Policy Number Policy Heath Covered Member ID Heath Member ID Guarantor Name 04/17/2023 1 [place] Nuvia Vargas [id number] Nuvia Vargas 04/17/2023 2 [place] 106 Nuvia Vargas [id number] Nuvia Vargas 07/30/2023 1 [place] Nuvia Vargas [id number] Nuvai Vargas 07/30/2023 2 [place] 106 Nuvia Vargas [id number] Nuvia Vargas 10/20/2023 1 [place] Nuvia Vargas [id number] Nuvia Vargas 10/20/2023 2 [place] 106 Nuvia Vargas [id number] Nuvia Vargas 11/05/2023 1 [place] Nuvia Vargas [id number] Nuvia Vargas 11/05/2023 2 [place] 106 Nuvia Vargas [id number] Nuvia Vargas 11/19/2023 1 [place] Nuvia Vargas [id number] Nuvia Vargas 11/19/2023 2 [place] 106 Nuvia Vargas [id number] Nuvia Vargas Notes Date Note Type Note Provider Name and Address Organization Details Recorded Time 04/17/2023 text/html Patient returns complaining of bilateral knee pain she comes in every few months for cortisone injection she has severe primary osteoarthritis with [id number] changes in medial and patellofemoral compartments it has been over a year since her last x-rays we will get new x-rays today as she is considering total knee arthroplasty. Her BMI is right at the cutoff of 40 she is 5 ft 4 in tall 237 lb with a BMI of 40.36. She would like to have her left knee replaced this 1 bothers her the most, denies any new problems with either knee shot gave her some relief for a few weeks the left knee wears off sooner than the right. We will have Dr. Zamorano talk to her about total knee arthroplasty today she may need to lose a little bit of weight before she could consider surgical intervention. In the meantime we will inject both knees today. NATALIE Mckeon [address] [facility], [place] [address], [place], [address], [facility] 04/17/2023 09:50:19 07/30/2023 text/html patient is a 67-year-old female patient Dr. Tova arora comes in today wanting to discuss proceeding with total knee arthroplasty of her left knee. She has has symptoms in both knees for over 10 years and her symptoms are severe. She primarily complains that she can not stand for very long because the pain becomes intolerable. She has trouble walking squatting kneeling and stairs she has catching giving way symptoms. She has had numerous injections over the years. She tried naproxen in the past with. The is in think it helped very much. Her last injections into both knees were mom the a little over 3 months ago on 04 17 2023. she gets partial temporary relief from the injections. She has worked hard to lose some weight. The clothes on today she weighs 221 lb. Height of 5 ft 2 1/2 inches corresponds to a BMI of 39.8. In April she weighed 237 lb. I reviewed her past medical history. She does have a history of diabetes. Last hemoglobin A1c was 6.8 she has blood pressure elevation and takes lisinopril metoprolol hydrochlorothiazide. she has history of elevated cholesterol takes is Ezetimibe, mother had heart disease. Her mother and sister had strokes. Yash Skinner MD [address] [place] [address], [facility] [address], [place], [address], [facility] 07/30/2023 19:02:28 OBGyn Episode No OBEpisode recorded.
--- OUTSIDE RECORDS SUMMARY | 2025-01-20 17:29 | XMS_ITS | Encounter Summary ---
Author Organization [facility] Address [address] [place] [address] Phone Care Team Providers Care Precision Agronomist Name Role Phone Srini Albert MD Primary Care Prov ider Yash Skinner MD Unavailable [phone] Encounter Details Date Type Department Care Team (Late st Contact Info) Description 12/09/2022 Orders Only [facility] Scanning, Provider Social History Tobacco Use Types Packs/Day Years Used Date Smoking Tobacco: Never Alcohol Use Standard Drinks/Week Comments No 0 (1 standard drink = 0.6 oz pur e alcohol) Comments Unknown Sex and Gender Information Value Date Recorded Sex Assigned at Not on file 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 Gender Identity Not on file Sexual Orientation Not on file documented as of this encounter Plan of Treatment Not on file documented as of this encounter Procedures Procedure Name Priority Date/Time Associated Diagnosis Comments SCAN - RADIOLOGY/IMAGING 12/09/2022 documented in this encounter Results * SCAN - RADIOLOGY/IMAGING (12/09/2022) Anatomical Region Laterality Modality Other us Provider Scanning Final Result documented in this encounter Visit Diagnoses Not on filedocumented in this encounter Care Teams Precision Agronomist Relationship Specialty Start Date End Date Srini Albert MD [address] [place] [address] PCP - General 02/05/12 Yash Skinner MD [address] [place] [address] Referring Physician Orthopedic Surgery 08/29/23 documented as of this encounter
== END 2025-01-20 15:55 | disposition home or self-care (01) ==
LOC: ANHIMG 15:54
PROVIDERS: PCP Family Medicine Adolescent Medicine; Visit Provider Family Medicine Adolescent Medicine
DX: Z12.31 Encounter for screening mammogram for malignant neoplasm of breast (principal)
CPT/HCPCS: 77063; 77067

== ENCOUNTER 2025-07-21 06:49 | Outpatient (CLI) | payer MEDICARE, BC, SELFPAY ==
--- OUTSIDE RECORDS SUMMARY | 2025-07-21 06:51 | XMS_ITS | Clinical Summary ---
Author Organization [facility] Address [facility] [place] [address] Care Team Providers Care Rest Room Maid Name Role Phone Unavailable Primary Care Provider [...] 1 - Tdap) 1973 Mammogram Screening 1994 Pneumococcal Vaccine: 50+ Ye ars (1 of 1 - PCV) 2004 Zoster Vaccines (1 of 2) 2004 Dexa Scan (General) 2019 COVID-19 Vaccine ( - 2023-2 5 season) 2025 RSV Immunization or 60+ Years (1 - [...]
--- OUTSIDE RECORDS SUMMARY | 2025-07-21 06:51 | XMS_ITS | Clinical Summary ---
Author Organization [facility] Address [address] [place] [address] Care Team Providers Care Medical Registrar Name Role Phone Srini Albert MD Primary Care Prov ider Yash Skinner MD Unavailable [phone] Allergies Active Allergy Reactions Criticality Noted [...] (11/13/2022): Added automatically from request for surgery [id number] Altered bowel habits 11/13/2022 Overview (11/13/2022): Added automatically from request for surgery [id number] Epigastric pain 11/13/2022 Overview (11/13/2022): Added automatically from request for surgery [id number] Pure hypercholesterolemia 03/26/2014 Overview (02/13/2017): PURE HYPERCHOLESTEROLEM [...] History Date Comments Type 2 diabetes mellitus Diabete s type 2 Hypertension Hypertension Hyperlipidemia Hyperlipidemia Hx [...] on file 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 Gender Identity Not on file Sexual Orientation Not on file Obstetrics History Last Filed Vital Signs Vital Sign Reading Time Taken Comments Blood Pressure 116/66 03/14/2025 8:20 AM CDT Pulse 63 03/14/2025 8:20 AM CDT Temperature 36.7 C (98.1 F) 02/10/2023 1:44 PM CDT Respiratory Rate 18 01/08/2023 9:25 AM SHIP'S PILOT Oxygen Saturation 98% 03/14/2025 8:20 AM CDT Inhaled Oxygen Concentration - - Weight 110.2 kg (243 lb) 03/14/2025 8:20 AM CDT Height 158.8 cm (5' 2.5) 03/14/2025 8:20 AM CDT Body Mass Index 43.74 03/14/2025 8:20 AM CDT Plan of Treatment Health Maintenance [...] Assessment 01/09/2024 01/08/2023 Covid-19 Vaccine (5 - 2024-2 6 season) 2025 08/29/2022, 10/09/2021, 02/01/2021, Additional history exists Influenza Vaccine (#1) 2025 08/29/2022, 2020 Lipid Panel 03/14/2026 03/14/2025, 04/2 07/2024, 01/26/2013 Colon Cancer Screening-Colonoscopy 01/08/20332022 Procedures Procedure Name Priority Date/Time Associated Diagnosis Comments POCT LIPID PANEL Routine 03/14/2025 8:32 AM CDT Pure hypercholesterolemia COLONOSCOPY 01/08/2023 8:23 AM SHIP'S PILOT from Last 3 Months or Most Recently Relevant to Health Maintenance Results * (ABNORMAL) POCT lipid panel (03/14/2025 8:32 AM CDT) Cholesterol, POC 158 <200 MG/DL Comment:GLU = 272 HDL, POC 33(A) >=40 mg/dL Triglycerides, POC 179(A) <=149 mg/dL LDL Cholesterol POC 89 <=129 mg/dL Chol/HDL Ratio, POC 2.6 NONE Non-HDL Cholesterol, POC 124 NONE mg/dL Cholesterol Total, POC 158 30 - 199 mg/dL Capillary blood 03/14/2025 8 :32 AM CDT us Shannan Lincoln MD POINT OF CARE TEST O RDERABLES Final Result * COLONOSCOPY (01/08/2023 8:23 AM SHIP'S PILOT) Anatomical Region Laterality Modality Other Narrative Procedure Note Mari Gutierrez MD - 01/08/2023 8:23 AM [facility] Patient Name: Nuvia Vargas Procedure Date: 01/08/2023 8:23 AM Date of : 1955 Admit Type: Outpatient Age: 67 Gender: Female Attending MD: Mari Gutierrez M.D. Room: [facility] ENDOSCOPY ROOM 9 Note Status: Finalized [...] The scope was passed under direct vision.The [facility] H190L [id number] endoscope was introduced through the anus and advanced to the terminal ileum, with identification of the appendiceal orifice and IC valve. The colonoscopy was performed without difficulty. The patient tolerated the procedurewell. The bowel preparation used was GoLYTELY via splitdose instruction. The quality of the bowel preparationwas evaluated using the BBPS ([place] Bowel Preparation Scale) with scores of: Right Colon = 3, Transverse Colon = 3 and Left Colon = 3 (entire mucosa seenwell with no residual staining, small fragments of stoolor opaque liquid). The total BBPS score equals 9. The quality of the bowel preparation was evaluatedusing the BBPS ([place] Bowel Preparation Scale) withscores of: Right Colon [...] Repeat colonoscopy in 3 - 5 years [facility] based on pathology results. - Return to my office at appointment to bescheduled. - Topical medication recommended for rash. Attending Participation: I personally performed the entire procedure. Electronically signed by Mari Gutierrez MD Mari Gutierrez M.D. 01/08/2023 9:17:00 AM . Number of Addenda: 0 Note Initiated On: 01/08/2023 8:23 AM Recognized by the [place] [employer] for promoting quality in endoscopy Mari Gutierrez MD ENDOSCOPY PROCEDURES [place] Result from Last 3 Months or Most Recently Relevant to Health Maintenance Insurance MEDICARE [facility] MEDICARE [facility] Address: [address] [place] [address] MEDICARE [facility] Advance Directives For more information, please contact: [phone] * Full Code (Latest Code Status on File) Date Activated Date Inactivated Comments 01/08/2023 7:14 AM 01/08/2023 2:17 PM Care Teams Medical Registrar Relationship Specialty Start Date End Date Srini Albert MD PCP - General 02/05/12 Yash Skinner MD [address] [place] [address] Referring Physician Orthopedic Surgery 08/29/23
[2025-07-21 08:30] LABS: Alanine Aminotransferase 39 U/L (6-35); Albumin Level 4.0 g/dL (3.5-5.1); Alkaline Phosphatase 74 U/L (38-126); Anion Gap 13 mmol/L (4-12); Aspartate Amino Transferase 49 U/L (14-36); Bilirubin,Total 0.6 mg/dL (0.2-1.3); Blood Urea Nitrogen 27 mg/dL (7-17); Calcium 9.2 mg/dL (8.4-10.2); Carbon Dioxide 19 mmol/L (22-30); Chloride 104 mmol/L (98-107); Cholesterol 162 mg/dL (0-200); Estimated Glomerular Filt Rate 47; Glucose 171 mg/dL (65-110); HDL Direct 38 mg/dL; Potassium 4.3 mmol/L (3.4-5.0); Sodium 136 mmol/L (137-145); Total Protein 7.4 g/dL (6.3-8.2); Triglycerides 199 mg/dL (<150)
[2025-07-21 08:44] LABS: Hemoglobin A1C 7.4 % (<5.7)
== END 2025-07-21 06:50 | disposition home or self-care (01) ==
PROVIDERS: PCP Family Medicine Adolescent Medicine; Visit Provider Family Medicine Adolescent Medicine
DX: E11.9 Type 2 diabetes mellitus without complications (principal); E78.00 Pure hypercholesterolemia, unspecified; I10 Essential (primary) hypertension
CPT/HCPCS: 36415; 80053; 80061; 83036

== ENCOUNTER 2025-08-09 08:02 | Outpatient (CLI) | payer MEDICARE, BC, SELFPAY ==
--- OUTSIDE RECORDS SUMMARY | 2025-08-09 08:12 | XMS_ITS | Encounter Summary ---
Author Organization 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
--- OUTSIDE RECORDS SUMMARY | 2025-08-09 08:12 | XMS_ITS | Clinical Summary ---
Author Organization [facility] Address [address] [place] [address] Care Team Providers Care Pension Manager Name Role Phone Srini Albert MD Primary Care Prov ider Yash Skinner MD Unavailable [phone] Allergies Active Allergy Reactions Criticality Noted [...] (11/13/2022): Added automatically from request for surgery [id number] Altered bowel habits 11/13/2022 Overview (11/13/2022): Added automatically from request for surgery [id number] Epigastric pain 11/13/2022 Overview (11/13/2022): Added automatically from request for surgery [id number] Pure hypercholesterolemia 03/26/2014 Overview (02/13/2017): PURE HYPERCHOLESTEROLEM [...] on file 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 Gender Identity Not on file Sexual Orientation Not on file Obstetrics History Last Filed Vital Signs Vital Sign Reading Time Taken Comments Blood Pressure 116/66 03/14/2025 8:20 AM CDT Pulse 63 03/14/2025 8:20 AM CDT Temperature 36.7 C (98.1 F) 02/10/2023 1:44 PM CDT Respiratory Rate 18 01/08/2023 9:25 AM LABORER WHARF Oxygen Saturation 98% 03/14/2025 8:20 AM CDT [...] CDT Pure hypercholesterolemia COLONOSCOPY 01/08/2023 8:23 AM LABORER WHARF from Last 3 Months or Most Recently [...] Final Result * COLONOSCOPY (01/08/2023 8:23 AM LABORER WHARF) Anatomical Region Laterality Modality Other Narrative Procedure Note Mari Gutierrez MD - 01/08/2023 8:23 AM [facility] Patient Name: Nuvia Vargas Procedure Date: 01/08/2023 8:23 AM Date of : 1955 Admit Type: Outpatient Age: 67 Gender: Female Attending MD: Mari Gutierrez M.D. Room: [facility] ENDOSCOPY ROOM 9 Note Status: Finalized Procedure: [...] The scope was passed under direct vision.The [facility] H190L [id number] endoscope was introduced through the anus and advanced to the terminal ileum, with identification of the appendiceal orifice and IC valve. The colonoscopy was performed without difficulty. The patient tolerated the procedurewell. The bowel preparation used was GoLYTELY via splitdose instruction. The quality of the bowel preparationwas evaluated using the BBPS ([place] Bowel Preparation Scale) with scores of: Right Colon = 3, Transverse Colon = 3 and Left Colon = 3 (entire mucosa seenwell with no residual staining, small fragments of stoolor opaque liquid). The total BBPS score equals 9. The quality of the bowel preparation was evaluatedusing the BBPS ([place] Bowel Preparation Scale) withscores of: Right Colon [...] Repeat colonoscopy in 3 - 5 years [facility] based on pathology results. - Return to my office at appointment to bescheduled. - Topical medication recommended for rash. Attending Participation: I personally performed the entire procedure. Electronically signed by Mari Gutierrez MD Mari Gutierrez M.D. 01/08/2023 9:17:00 AM . Number of Addenda: 0 Note Initiated On: 01/08/2023 8:23 AM Recognized by the [place] [employer] for promoting quality in endoscopy Mari Gutierrez MD ENDOSCOPY PROCEDURES [place] Result from Last 3 Months or Most Recently Relevant to Health Maintenance Insurance MEDICARE [facility] MEDICARE [facility] MEDICARE [facility] Advance Directives For more information, please contact: [phone] * Full Code (Latest Code Status on File) Date Activated Date Inactivated Comments 01/08/2023 7:14 AM 01/08/2023 2:17 PM Care Teams Pension Manager Relationship Specialty Start Date End Date Srini Albert MD PCP - General 02/05/12 Yash Skinner MD [address] [place] [address] Referring Physician Orthopedic Surgery 08/29/23
--- OUTSIDE RECORDS SUMMARY | 2025-08-09 08:12 | XMS_ITS | Data Portability ---
Author Organization [place] [facility] [place] [facility], Main Office Address [address] [place] [address] Care Team Providers Care Teaching Assistant Name Role Phone TIM MENDOZA Primary Care [...] knees from 04/17/2023 are reviewed. She has [id number] medial compartment osteoarthritis in both knees. She [...] more than half the time spent in rbqn-we-kwdb care. [email or web address] Not available 07/30/2023 19:02:01 10/20/2023 [...] DO Not Attach Compendium, Do Not Delete/merge, [id number] 3 09:13:43 Surgeries None recorded. Imaging XR, knee 2023 024 [email or web address] [facility] [place], [address], [place], [address], 4 07:35:20 XR, knee 2022 023 [email or web address] [facility] [place], [address], [place], [address], 3 09:59:16 Medication Orders Celebrex 200 mg capsule 2022 023 [email or web address] [id number], [address], [place], [id number], 4 10:09:42 Kenalog 10 mg/mL suspension for injection 2022 023 [email or web address] [facility] #[id number], [address], [place], [id number], 3 09:59:16 ropivacaine (PF) 5 mg/mL (0.5 %) injection solution 2022 023 [email or web address] [facility] #[id number], [address], [place], [id number], 3 09:26:27 Patient TargetsNo targets recorded. Patient InstructionsNo instructions recorded. Reason for Referral None Reported. Results Created Date Observation Date Name Description Value Unit Range Abnormal Flag Note LastModifiedBy Organization Detail LastModifiedTime 04/17/20 23 XR, knee No observ ation record ed. [email or web address] [facility] [place] [address], [place], [address], 04/17/2023 09:49:23 11/29/20 23 10/08/2023 XR, knee No observ ation record ed. [email or web address] [facility] [address], [place], [address], 10/10/2023 11:07:42 11/19/19 24 XR, knee No observ ation record ed. [facility] [place] [address], [place], [address], 11/19/2023 11:24:14 Result Notes None recorded. Problems Name Problem SNOMED Code Status Onset Date Resolution Date Notes Provider Name and Address Organization Details Recorded Time Osteoarthr itis of knee 426825008 Active Not Available [facility] 3 13:52:49 Inflammato ry disorder of extremity 683382411 Active Not Available [facility] 3 13:52:50 Osteoarthr itis 738584348 Active Not Available [facility] 3 13:52:50 Morbid obesity 602035721 Active 2020 Not Available [facility] 3 13:52:49 Osteoarthr itis of left knee joint 3763645664174 09 Active 2020 Not Available [facility] 3 13:52:49 Osteoarthr itis of right knee joint 5491333706182 00 Active 2020 Not Available [facility] 3 13:52:50 Pain of bilateral knee joints 4727975930354 04 Active 2021 Not Available [facility] 3 13:52:50 Bilateral osteoarthr itis of knees 0320810776206 07 Active 2022 Monika Shabazz, BHAVIK L ann marie, [place] [facility] 3 14:22:57 Problem Notes None recorded. Procedures Surgical History Date Name Laterality Status Provider Name and Address Organization Details Recorded Time Knee Surgery completed Not Available [facility] 01/08/2023 13:52:11 Hernia Repair completed Not Available [facility] 01/08/2023 13:52:11 Imaging Results None recorded. Procedure Notes None recorded. Medical Equipment None Reported. Allergies Allergen ID Allergen Name Allergen Category Reaction Reaction Severity Criticality Documentation Date Start Date Code Code System Note Provider Name and Address Organization Details Recorded Time 23002 morphine medicatio n nausea Not available Not available 01/08/2023 7052 RxNorm Not Available [facility] 3 13:55:29 41718 adhesive environme nt,medica tion rash Not available Not available 01/08/2023 Steri strip s and glue Not Available [facility] 3 13:55:29 Medications Name Sig Start Date [...] 4 mL by injection route. 2022 active NDC: 0003- 0494- 20 Not Available Not Available [...] administe red by the provider 01/14 completed NDC: 0409- 4276- 17 Not Available Not Available [...] 8 mL by injection route. 07/30 completed [facility] [address] -064- 01 Not Available Not Available Not [...] Not Available Vitals Date Recorded Body height Provider Name an d Address Organization Details Last Updated DateTime 11/19/2023 158.75 cm JAJA Hager [email or web address] 11/19/2023 10:09:30 Date Recorded Body height Body mass index (BMI) Body weight Provider Name and Address Organization Details Last Updated DateTime 04/17/2023 160.02 cm 42 kg/m2 626968.39 g Maine Pelletier [email or web address] [email or web address] 04/17/2023 09:48:05 Date Recorded Body height Body mass index (BMI) Body weight Provider Name and Address Organization Details Last Updated DateTime 07/30/2023 158.75 cm 39.8 kg/m2 660539.91 g Ana Xavier [email or web address] [email or web address] 07/30/2023 09:41:00 Date Recorded Body height Provider Name an d Address Organization Details Last Updated DateTime 10/20/2023 158.75 cm Ana Xavier [employer] [email or web address] 10/20/2023 15:54:06 Date Recorded Body height Provider Name an d Address Organization Details Last Updated DateTime 11/05/2023 158.75 cm Ana JAJA Xavier [place] [facility] 11/05/2023 10:05:45 Social History None recorded. Functional Status Question Answer Note LastModified by Organizat ion Details LastModified Time Do you or have you ever used any other forms of tobacco or nicotine? No [id number] Information not available 01/08/2023 What is your level of alcohol consumption? None [id number] Information not available 01/08/2023 Mental Status None recorded. Family History Relationship Description Onset Age of this Age Resolved Age Notes LastModified by Organization Details LastModified Time Father Family history of malignant neoplasm [id number] Not available 01/08/2023 13:52:12 Brother Family history of malignant neoplasm [id number] [id number] Not available 01/08/2023 13:52:12 Brother Diabetes mellitus [id number] Not available 01/08/2023 13:52:12 Mother Heart disease [id number] Not available 01/08/2023 13:52:12 Mother Diabetes mellitus [id number] [id number] Not available 01/08/2023 13:52:12 Sister Diabetes mellitus [id number] [id number] Not available 01/08/2023 13:52:13 Mother Family history [...] Diagnosis SNOMED-CT Code Diagnosis ICD10 Code Diagnosis IMO Codes Diagnosis Note [id number] Zacarias Zamorano MD Lauren_[facility] [place] [address] [place] [address] 08/30/2021 00:00:00 09/04/2021 12:58:50 [id number] Zacarias Zamorano MD [facility] [place] [address] [place] [address] 10/23/2021 00:00:00 10/23/2021 14:27:36 [id number] Zacarias Zamorano MD [facility] [place] [address] [place] [address] 11/29/2021 00:00:00 11/29/2021 09:51:50 [id number] Zacarias Zamorano MD [facility] [place] [address] [place] [address] 03/28/2022 00:00:00 03/28/2022 11:43:13 [id number] Zacarias Zamorano MD [facility] [place] [address] [place] [address] 04/25/2022 00:00:00 04/25/2022 09:01:18 [id number] Zacarias Zamorano MD [facility] [place] [address] [place] [address] 08/05/2022 00:00:00 08/05/2022 10:00:00 [id number] NATALIE Mckeon [facility] [place] [address] [place] [address] 01/14/2023 13:56:47 01/14/2023 15:44:45 Pain of bilateral knee joints 1178173405 30280 M25.561 M25.562 Bilateral osteoarthritis of knees 6334004269 05580 M17.0 [id number] Zacarias Zamorano MD [facility] [place] [address] [place] [address] 04/17/2023 09:06:02 04/17/2023 09:48:03 Bilateral osteoarthritis of knees 9324040243 67364 M17.0 Pain of bi lateral knee joints 5919981991 38624 M25.561 M25.143 [id number] Yash Skinner MD [facility] [place] [address] [place] [address] 07/30/2023 09:03:33 08/01/2023 09:50:30 Osteoarthritis of left knee joint 5997335272 10690 M17.12 Bilateral osteoarthritis of knees 3370927659 03013 M17.0 [id number] Yash Skinner MD [facility] [place] [address] [place] [address] 10/20/2023 15:27:25 10/20/2023 16:57:53 Osteoarthritis of left knee joint 3472567884 16933 M17.12 [id number] Yash Skinner MD [facility] [place] [address] [place] [address] 11/05/2023 09:56:02 11/05/2023 11:49:58 History of left total knee replacement 0546866539 204963 Z96.004 [id number] Yash Skinner MD [facility] [place] [address] [place] [address] 11/19/2023 10:06:27 11/19/2023 11:29:11 History of left total knee replacement 4933473214 360838 Z96.652 Health Concerns Section Related Observation LastModified by Organization Detai ls LastModified Time None Recorded Concern Status LastModified by Organization Details LastModified Time None Recorded Advance Directives Directive None Recorded Payers Insurance Date Sequence Insurance Name Policy Number Policy Heath Covered Member ID Heath Member ID Guarantor Name 11/16/2023 1 [place] Nuvia Vargas [id number] Nuvia Vargas 11/27/2023 2 [place] 106 Nuvia Vargas [id number] Nuvia Vargas Notes Date Note Type Note Provider Name and Address Organization Details Recorded Time 04/17/2023 text/html Patient returns complaining of bilateral knee pain she comes in every few months for cortisone injection she has severe primary osteoarthritis with tvrz-xi-dysr changes in medial and patellofemoral compartments it [...] inject both knees today. NATALIE Mckeon [address], [place], [address], [email or web address] 04/17/2023 09:50:19 07/30/2023 text/html patient is a [...] and sister had strokes. Yash Skinner MD [address], [place], [address], [email or web address] 07/30/2023 19:02:28 OBGyn Episode No OBEpisode recorded.
--- NOTE | 2025-09-08 10:59 | WPDSLEEPSTUD ---
Sleep Study Date of Study: 08/09/25 Ordering Provider: Srini Albert MD Interpreting Physician: Magdalena Breen MD Sleep Study Type: Polysomnogram Height: 1.57 m Weight: 107.955 kg Body Mass Index: 43.5 Neck Circumference (inches): 17.5 [place]: 5 Reason for Sleep Study Snoring, waking at night to urinate, restless legs currently on clonazepam Sleep History Nuvia Vargas is a 70-year-old woman with difficulty falling asleep and staying asleep. He tosses and turns all night, she is up every 1 and half to 2 hours to go to the bathroom. She takes clonazepam for restless legs and this gives her benefit until about midnight when it wears off. She rarely awakens from sleep short of breath. She rarely wakes at night with heartburn, belching or coughing.??She occasionally snores, never snores loudly enough that others complain. She occasionally has trouble sleeping when she has a cold. She never wakes up gasping for breath during the night. She rarely has breathing problems at night. She occasionally sweats excessively at night. She never notices her heart pounding or beating irregularly during the night. She frequently falls asleep during the day. She rarely falls asleep involuntarily, never falls asleep while driving. She never experiences loss of muscle tone with strong emotion. She never feels paralyzed on waking or falling asleep. She occasionally experiences vivid dreams upon waking or falling asleep. She never feels afraid of going to sleep. She rarely has nightmares. She occasionally recalls her dreams. She frequently has thoughts racing through her mind. She never feels sad or depressed. She rarely feels anxiety. She never notices parts of her body jerk. She constantly kicks during the night. She frequently feels crawling or aching feelings in her legs. She frequently feels leg pain at night. She never has morning jaw pain, nor does she grind her teeth at night. She occasionally feels bothered by pain during the day, is occasionally awakened by pain during the night. She occasionally wakes up feeling stiff in the morning, occasionally wakes feeling sore or achy in the morning. She occasionally awakens with pain in her neck, spine, or joints. She does complain that her RLS meds wear off around midnight. Patient's medical history includes Type 2 diabetes, HTN, RLS, and GERD. Normal bedtime is 9:00 p.m., falling asleep within 1-3 hours, waking 3-4 times at night to use the bathroom, also may awaken due to tossing and turning or kicking her legs.. She wakes at 6:30 a.m., reports getting 4 hours of sleep per night. Her weekend schedule is the same. She takes naps in the afternoon or evening, however a short nap lasting 10-15 minutes is not refreshing. Habits:??Tobacco: never Caffeine: one serving per day Alcohol: none Recreational substances: none PMF Past Medical History Medical History (Updated 09/08/25 @ 11:29 by Magdalena Breen MD) Pure hypercholesterolemia, unspecified Essential (primary) hypertension Diabetes type 2, controlled Restless leg syndrome History of torn meniscus of knee 2011 Surgical History Surgical History History of total left knee replacement (09/2023) History of hernia surgery History of appendectomy History of cholecystectomy Family History Family History Mother Heart disease Diabetes mellitus Sibling Heart disease Diabetes mellitus Depression Lymphoma Multiple sclerosis Lupus Other Malignant neoplasm of prostate Social History Social History Smoking status: Never smoker Second hand tobacco smoke exposure: No Additional smoking assessment comments: DENIES ANY FORM OF TOBACCO USE Alcohol intake: never Substance use: never Substance use type: does not use Do You Feel Safe in your Home?: Yes Lack of Transportation: No Lack of Food: Never True Current Housing: I Have Housing Concerned About Future Housing: No Difficulty Paying Gas/Electric Bills: No Difficulty Paying for Meds: No Currently Unemployed: No Education: High School Diploma/GED Difficulty w/ Childcare or Family Care: No Living arrangements: with family Occupation/Education: retired Gender identity (if verbalized by the patient): Female Sexual Orientation (if Verbalized by the Patient): Straight or Heterosexual Spiritual care concerns: No Agree to blood products: Yes Medications Home Medications ?Medication ?Instructions ?Recorded ?Confirmed ?Type lancets 30 gauge (Easy Touch Twist #100 ea 06/17/24 07/19/25 Rx Lancets) blood sugar diagnostic (Contour #100 ea 07/05/24 07/19/25 Rx Next Test Strips) glimepiride 2 mg tablet 2 mg PO DAILY #90 tabs 03/27/25 07/19/25 Rx lisinopril 40 mg tablet 40 mg PO DAILY #90 tabs 03/27/25 07/19/25 Rx clonazepam 0.5 mg tablet See Rx Instructions PO QHS PRN 03/28/25 07/19/25 Rx restless leg #30 tabs metformin 500 mg tablet,extended See Rx Instructions PO BID #270 03/28/25 07/19/25 Rx release 24 hr tabs metoprolol succinate 100 mg 100 mg PO DAILY #90 tabs 06/24/25 07/19/25 Rx tablet,extended release 24 hr omeprazole 20 mg capsule,delayed 20 mg PO BID #180 caps 06/24/25 07/19/25 Rx release ezetimibe 10 mg tablet 10 mg PO DAILY #90 tabs 06/27/25 07/19/25 Rx hydrochlorothiazide 25 mg tablet 25 mg PO DAILY #90 tabs 06/27/25 07/19/25 Rx semaglutide 0.25 mg or 0.5 mg (2 0.25 mg (0.368 mL) subcut WEEKLY 08/10/25 Rx mg/3 mL) subcutaneous pen injector #3 mL (Ozempic) Sleep Procedure A full night polysomnogram using the GCI Com multi-channel system recorded the standard physiologic parameters including EEG, EOG, submentalis EMG, anterior tibialis EMG, EKG, body position, nasal and oral airflow using nasal pressure sensor and thermistor. Respiratory parameters of chest and abdominal movements were recorded with Respiratory Inductance Plethysmography belts. Oxygen saturation was recorded by pulse oximetry. Video monitoring was also performed. Sleep stages, periodic limb movements, and EEG arousals were scored in 30 second epochs according to the criteria of the AASM Scoring Manual. The Apnea-Hypopnea Index was calculated using CMS guidelines for definition of hypopnea while scoring respiratory events. The patient self-administered 2 clonazepam at the start of the study. Sleep Architecture The total recording time was 533.6 minutes. The total sleep time was 354.0 minutes. Sleep latency was 40.1 minutes. REM latency was 162.5 minutes. Sleep efficiency was 66.3%. The patient had 28 awakenings for an awakening index of 4.7. Wake after sleep onset time was 139.5 minutes. The patient spent 24.5 minutes, 6.9% of total sleep time in Stage N1. The patient spent 245.5 minutes, 69.4% in Stage N2. The patient spent 43.5 minutes, 12.3% in Stage N3. The patient spent 40.5 minutes, 11.4% in Stage REM sleep. Respiratory Analysis The patient had 63 hypopneas, no obstructive apneas, no mixed apneas, and no central apneas for an overall Apnea Hypopnea Index of 10.7. The REM Apnea Hypopnea Index was 48.9. The NREM Apnea Hypopnea Index was 6.3. The patient had a Central Apnea Hypopnea Index of 0. There were no Respiratory Effort Related Arousals. The Respiratory Disturbance Index is 11.5 events per hour. There was no evidence of Edwin-Mcfarland Respirations. Arousals There were 119 total arousals for an arousal index of 20.2. There were 71 spontaneous arousals for an index of 12.0. There were 11 arousals due to respiratory events for an index of 1.9. There were 31 arousals due to periodic limb movements for an index of 5.3. There were 6 arousals due to isolated limb movements for an index of 1.0. Periodic Limb Movements The patient had 9 isolated limb movements with an index of 1.5. The patient had 183 periodic limb movements with an index of 31.0. Patient had a total of 192 limb movements with a total limb movement index of 32.5. Oximetry Data The patient had an average oxygen saturation of 91% in sleep with a minimum oxygen saturation of 80% and a maximum oxygen saturation of 100%. The patient had 78 oxygen desaturations that were 4% or greater resulting in an Oxygen Desaturation Index of 13.2. The patient spent 46.2 minutes, 8.9% of total sleep time with an oxygen saturation below 88%. Snoring Profile Snoring was mild and intermittent. Cardiac Profile The EKG showed normal sinus rhythm, patient had an average pulse rate of 59.6 bpm with a minimum pulse of rate of 44 bpm and a maximum pulse rate of 87 bpm. No arrhythmias noted. EEG Profile Unremarkable, no evidence of seizures. Assessment and Plan Assessment and Plan (1) Obstructive sleep apnea: Code(s): G47.33 - Obstructive sleep apnea (adult) (pediatric) Status: Acute Assessment and Plan: This basic nocturnal polysomnogram on 08/09/2025 shows mild obstructive sleep apnea, the apnea-hypopnea index is 10.7 with a minimum saturation of 80%, mild intermittent snoring with 46.2 minutes, 8.9% the study spent below 88% saturation. She has a medical comorbidity of hypertension, and with this, she is a candidate for PAP therapy. She did not have central apneas. AutoPAP is an option. I recommend that this patient be prescribed a Resmed AirSense 11 AutoPAP 5-15 cm H2O, CPAP mask/filters/tubing and humidifier chamber. This should be used with all episodes of sleep. Compliance should be reviewed within 31-90 days of starting therapy for usage greater than 4 hours per night greater than 70% of the nights. The patient should be asked about symptoms such as excessive daytime sleepiness, quality of sleep, decreased nocturia, increased mental functioning such as memory, mood, and concentration. If she does not respond to auto PAP, consider overnight titration in the sleep lab with adequate sedation to get to sleep and stay asleep during the titration. She had 2 clonazepam which did not allow her to fall asleep in a timely way. She had a delayed sleep latency. I would strongly recommend the patient avoid naps on a regular basis and especially if she returns to sleep lab for a titration. Naps interfere with the ability to fall asleep easily. BMI is 43. Weight management is advised. Clinical data suggests that weight loss of 10% can reduce the severity of respiratory events and snoring and improve AHI by as much as 25%. (2) Restless leg syndrome: Code(s): G25.81 - Restless legs syndrome Status: Acute Assessment and Plan: She has a history of restless legs syndrome, self-administered clonazepam at the start of the study. she had an elevated number of periodic limb movements, 183 periodic limb movements with an index of 31, periodic limb movement arousal index was 5.3%, only 15% of her periodic limb movements caused arousal. She is on clonazepam. Ferritin level is indicated to exclude iron deficiency anemia as a contributing factor. Ferritin should be 75 ng/mL or greater. If ferritin is below this, iron supplementation should be given to achieve ferritin of 75 ng/mL. There are nonpharmacologic methods to treat limb movements including daily exercise, stretching calf muscles before bed, avoiding excessive amounts of caffeine and alcohol, vitamin B supplementation, magnesium lotion massaged into legs before bed, and use of a weighted blanket. Pharmacologic therapy is very effective for restless legs syndrome and limb movements during sleep and may include [id number]-6-[id number] voltage-gated calcium channel ligands such as gabapentin which is preferable to dopaminergic agents which can have augmentation. Data The data obtained during this sleep study is adequate for interpretation. Certification This sleep study has been reviewed by a board certified sleep medicine physician.
[2025-09-08 11:36] VITALS: BMI 43.5
== END 2025-08-10 06:40 | disposition home or self-care (01) ==
LOC: ANHCSM 08:03
PROVIDERS: PCP Family Medicine Adolescent Medicine; Visit Provider Family Medicine Adolescent Medicine
DX: G47.33 Obstructive sleep apnea (adult) (pediatric) (principal); G25.81 Restless legs syndrome; G47.00 Insomnia, unspecified; R40.0 Somnolence; I10 Essential (primary) hypertension; E66.01 Morbid (severe) obesity due to excess calories; Z68.41 Body mass index [BMI] 40.0-44.9, adult
CPT/HCPCS: 95810

== ENCOUNTER 2025-10-21 06:49 | Outpatient (CLI) | payer MEDICARE, BC, SELFPAY ==
--- OUTSIDE RECORDS SUMMARY | 2025-10-21 06:53 | XMS_ITS | Clinical Summary ---
Author Organization [facility] Address [address] [place] [id number] Care Team Providers Care Machine Inspector Name Role Phone Srini Albert MD Primary Care Prov ider Yash Skinner MD Unavailable Allergies Active Allergy Reactions Criticality Noted Date [...] (11/13/2022): Added automatically from request for surgery [id number] Altered bowel habits 11/13/2022 Overview (11/13/2022): Added automatically from request for surgery [id number] Epigastric pain 11/13/2022 Overview (11/13/2022): Added automatically from request for surgery [id number] Pure hypercholesterolemia 03/26/2014 Overview (02/13/2017): PURE HYPERCHOLESTEROLEM [...] on file 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 Gender Identity Not on file Sexual Orientation Not on file Last Filed Vital Signs Vital Sign Reading Time Taken Comments Blood Pressure 116/66 03/14/2025 8:20 AM CDT Pulse 63 03/14/2025 8:20 AM CDT Temperature 36.7 C (98.1 F) 02/10/2023 1:44 PM CDT Respiratory Rate 18 01/08/2023 9:25 AM LEAD PORTFOLIO MANAGER Oxygen Saturation 98% 03/14/2025 8:20 AM CDT [...] Fall Risk Assessment 01/09/2024 01/08/2023 Covid-19 Vaccine (2024-2 6 season) 2025 08/29/2022, 10/09/2021, 02/01/2021, Additional history exists Influenza Vaccine (#1) 2025 08/29/2022, 2020 Lipid Panel 03/14/2026 03/14/2025, 04/07/2024, 01/26/2013 Colon Cancer Screening-Colonoscopy 01/08/20332022 Procedures Procedure Name Priority Date/Time Associated Diagnosis Comments POCT LIPID PANEL Routine 03/14/2025 8:32 AM CDT Pure hypercholesterolemia COLONOSCOPY 01/08/2023 8:23 AM LEAD PORTFOLIO MANAGER from Last 3 Months or Most Recently [...] Final Result * COLONOSCOPY (01/08/2023 8:23 AM LEAD PORTFOLIO MANAGER) Anatomical Region Laterality Modality Other Narrative Procedure [...] scope was passed under direct vision.The [facility] H190L [id number] endoscope was introduced through the anus and advanced to the terminal ileum, with identification of the appendiceal orifice and IC valve. The colonoscopy was performed without difficulty. The patient tolerated the procedurewell. The bowel preparation used was GoLYTELY via splitdose instruction. The quality of the bowel preparationwas evaluated using the BBPS (Wells Bowel Preparation Scale) with scores of: Right Colon = 3, Transverse Colon = 3 and Left Colon = 3 (entire mucosa seenwell with no residual staining, small fragments of stoolor opaque liquid). The total BBPS score equals 9. The quality of the bowel preparation was evaluatedusing the BBPS (Wells Bowel Preparation Scale) withscores of: Right Colon [...] [facility]. - Return to my office at appointment to bescheduled. - Topical medication recommended for rash. Attending Participation: I personally performed the entire procedure. Electronically signed by Mari Gutierrez MD Mari Gutierrez M.D. 01/08/2023 9:17:00 AM . Number of Addenda: 0 Note Initiated On: 01/08/2023 8:23 AM Recognized by the [place] [employer] for promoting quality in endoscopy Mari Gutierrez MD ENDOSCOPY PROCEDURES [place] l Result from Last 3 Months or Most Recently Relevant to Health Maintenance Insurance MEDICARE [facility] MEDICARE [facility] MEDICARE [facility] Advance Directives For more information, please contact: [phone] * Full Code (Latest Code Status on File) Date Activated Date Inactivated Comments 01/08/2023 7:14 AM 01/08/2023 2:17 PM Care Teams Machine Inspector Relationship Specialty Start Date End Date Srini Albert MD PCP - General 02/05/12 Yash Skinner MD [address] [place] [address] Referring Physician Orthopedic Surgery 08/29/23
--- OUTSIDE RECORDS SUMMARY | 2025-10-21 06:53 | XMS_ITS | Encounter Summary ---
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
[2025-10-21 07:52] LABS: Alanine Aminotransferase 21 U/L (6-35); Albumin Level 3.8 g/dL (3.5-5.1); Alkaline Phosphatase 83 U/L (38-126); Anion Gap 5 mmol/L (4-12); Aspartate Amino Transferase 31 U/L (14-36); Bilirubin,Total 0.6 mg/dL (0.2-1.3); Blood Urea Nitrogen 23 mg/dL (7-17); Calcium 8.9 mg/dL (8.4-10.2); Carbon Dioxide 27 mmol/L (22-30); Chloride 106 mmol/L (98-107); Cholesterol 159 mg/dL (0-200); Estimated Glomerular Filt Rate 49; Glucose 137 mg/dL (65-110); HDL Direct 35 mg/dL; Potassium 3.9 mmol/L (3.4-5.0); Sodium 138 mmol/L (137-145); Total Protein 7.1 g/dL (6.3-8.2); Triglycerides 133 mg/dL (<150)
[2025-10-21 14:56] LABS: Hemoglobin A1C 6.9 % (<5.7)
== END 2025-10-21 06:50 | disposition home or self-care (01) ==
PROVIDERS: PCP Family Medicine Adolescent Medicine; Visit Provider Family Medicine Adolescent Medicine
DX: E78.00 Pure hypercholesterolemia, unspecified (principal); E11.9 Type 2 diabetes mellitus without complications; I10 Essential (primary) hypertension
CPT/HCPCS: 36415; 80053; 80061; 83036